=== PATIENT | female | born 1960 | race Caucasian/White ===

== ENCOUNTER 2019-03-28 11:57 | Outpatient (CLI) | payer OTHER, SELFPAY ==
--- NOTE | ~2019-03-28 | CT_ITS ---
EXAMINATION: CT abdomen pelvis w con EXAM DATE: 03/28/2019 14:04 INDICATION: Acute left lower quadrant pain. TECHNIQUE: Spiral CT of the abdomen and pelvis was performed following intravenous injection of 100 m L Omnipaque 350. Axial, coronal and sagittal images were reviewed. The dose-length product (DLP) fo r this examination was 410.80 mGy-cm. The exposure was tailored according to patient size (auto mA e xposure control), and iterative reconstruction (ASIR) was used as additional dose reduction technique . There is no prior study for comparison. FINDINGS: The liver, spleen, adrenal glands and pancreas are unremarkable. Gallbladder is unremarkab le. No biliary obstruction. Portal and splenic veins are patent. Kidneys enhance symmetrically. T here is no hydronephrosis. The uterus is not identified and has likely been surgically resected. T he bladder is unremarkable. There is no retroperitoneal or pelvic lymphadenopathy. There is mild s cattered arteriosclerotic disease. The appendix is not positively visualized. There is no pericecal inflammatory change to suggest appendicitis. The stomach and small bowel are unremarkable. There is mild to moderate scattered colonic diverticulosis. There is focal inflammation surrounding c ouple of larger diverticula at the descending/sigmoid colonic junction. Most likely acute uncomplicat ed diverticulitis. Although findings above are most consistent with acute diverticulitis, rarely infl ammatory cancer can have a similar appearance. Therefore recommend treating patient for acute diverti culitis and then obtaining a 2-4 week followup abdomen pelvis CT. Alternatively, if patient has not h ad recent colonoscopy, followup colonoscopy could be considered. No free intraperitoneal gas. The heart is normal in size. There are no pericardial or pleural effusions. The lung bases are unremark able. There are no osteoblastic or osteolytic lesions identified. IMPRESSION: Scattered colonic diverticulosis with moderate inflammation of the descending/sigmoid col onic junction most likely acute uncomplicated diverticulitis. Follow-up recommendation above. Reviewed, dictated and finalized at location A. MAKER IMPRESSION: Scattered colonic diverticulosis with moderate inflammation of the descending/sigmoid colonic junction most likely acute uncomplicated diverticuli tis. Follow-up recommendation above.
[2019-03-28 12:30] LABS: Basophils Absolute Auto 0.06 K/mm3 (0.00-0.10); Basophils Percent Auto 0.5 % (0.0-1.0); Eosinophils Absolute Auto 0.12 K/mm3 (0.02-0.50); Eosinophils Percent Auto 0.9 % (1.0-6.0); Hematocrit 38.8 % (35.0-49.0); Hemoglobin 12.8 g/dL (12.0-15.0); Immature Granulocyte Absolute 0.03 K/mm3 (0.00-0.00); Immature Granulocyte Percent A 0.2 % (0.0-0.0); Lymphocytes Absolute Auto 2.08 K/mm3 (1.10-4.50); Lymphocytes Percent Auto 16.2 % (18.0-42.0); Mean Corpuscular Hemoglobin 31.3 pg (27.0-31.0); Mean Corpuscular Volume 94.9 fL (78.0-102.0); Mean Platelet Volume 9.7 fl (9.2-11.8); Monocytes Absolute Auto 1.16 K/mm3 (0.10-0.90); Neutrophils Absolute Auto 9.4 K/mm3 (1.7-7.2); Neutrophils Percent Auto 73.2 % (50.0-70.0); Platelet Count Result 250 K/mm3 (150-420); Red Blood Count 4.09 M/mm3 (4.20-5.40); Red Cell Distribution Width 12.2 % (11.6-14.4); White Blood Count 12.9 K/mm3 (4.8-10.8)
[2019-03-28 12:42] LABS: Add Urine Microscopic? YES; Appearance Urine Clear (Clear); Bilirubin Urine Negative (Negative); Blood Urine 2+ (Negative); Color Urine Yellow (Yellow); Glucose Urine UA Negative (Negative); Ketones Urine Negative (Negative); Leukocyte Esterase Ur Negative LEU/UL (Negative); Nitrate Urine Negative (Negative); Protein Urine Negative (Negative); Specific Grav Ur 1.015 (1.010-1.020); Urobilinogen Urine 0.2 mg/dL (0.2-1.0)
[2019-03-28 12:45] LABS: Alanine Aminotransferase 16 U/L (14-59); Albumin Level 3.9 g/dL (3.4-5.0); Alkaline Phosphatase 66 U/L (46-116); Anion Gap 13.4 mmol/L (7-16); Aspartate Amino Transferase 14 U/L (15-37); Bilirubin,Total 0.6 mg/dL (0.00-1.00); Blood Urea Nitrogen 10 mg/dL (7-18); Calcium 9.1 mg/dL (8.5-10.1); Carbon Dioxide 28 mmol/L (21-32); Chloride 103 mmol/L (98-108); Estimated Glomerular Filt Rate > 60; Glucose 104 mg/dL (70-99); Osmolality Calculated 289 mOsm/kg (285-295); Potassium 4.4 mmol/L (3.5-5.1); Sodium 140 mmol/L (136-145); Total Protein 8.3 g/dL (6.4-8.2)
[2019-03-28 12:51] LABS: Bacteria Urine Trace /hpf; Squamous Epithelial Cell Urine Few /hpf (Few); WBC Urine 0-3 /hpf (0-3)
== END 2019-03-28 11:58 | disposition home or self-care (01) ==
PROVIDERS: PCP Internal Medicine; Visit Provider Internal Medicine
DX: R10.32 Left lower quadrant pain (principal)
CPT/HCPCS: 36415; 74177; 80053; 81001; 85025; Q9965

== ENCOUNTER 2019-04-11 12:22 | Outpatient (CLI) | payer OTHER, SELFPAY ==
[2019-04-11 12:34] LABS: Basophils Absolute Auto 0.05 K/mm3 (0.00-0.10); Basophils Percent Auto 0.7 % (0.0-1.0); Eosinophils Absolute Auto 0.15 K/mm3 (0.02-0.50); Immature Granulocyte Absolute 0.02 K/mm3 (0.00-0.00); Immature Granulocyte Percent A 0.3 % (0.0-0.0); Lymphocytes Percent Auto 25.4 % (18.0-42.0); Mean Corpuscular HGB Conc 34.1 g/dL (32.0-36.0); Mean Corpuscular Hemoglobin 32.1 pg (27.0-31.0); Mean Platelet Volume 9.5 fl (9.2-11.8); Monocytes Absolute Auto 0.49 K/mm3 (0.10-0.90); Monocytes Percent Auto 6.6 % (2.0-11.0); Neutrophils Absolute Auto 4.9 K/mm3 (1.7-7.2); Platelet Count Result 264 K/mm3 (150-420); Red Blood Count 4.36 M/mm3 (4.20-5.40); Red Cell Distribution Width 12.4 % (11.6-14.4); White Blood Count 7.5 K/mm3 (4.8-10.8)
[2019-04-11 12:36] LABS: Add Urine Microscopic? YES; Appearance Urine Clear (Clear); Bilirubin Urine Negative (Negative); Blood Urine 1+ (Negative); Color Urine Yellow (Yellow); Glucose Urine UA Negative (Negative); Ketones Urine Negative (Negative); Leukocyte Esterase Ur Negative (Negative); Nitrate Urine Negative (Negative); Protein Urine Negative (Negative); Urobilinogen Urine 0.2 mg/dL (0.2-1.0); pH Urine 5.5 (5.0-8.0)
[2019-04-11 12:41] LABS: Bacteria Urine Trace /hpf; Squamous Epithelial Cell Urine Rare /hpf (Few); WBC Urine 0-3 /hpf (0-3)
[2019-04-11 13:42] LABS: Alanine Aminotransferase 36 U/L (14-59); Albumin Level 4.2 g/dL (3.4-5.0); Alkaline Phosphatase 58 U/L (46-116); Anion Gap 15.5 mmol/L (7-16); Aspartate Amino Transferase 28 U/L (15-37); Bilirubin,Total 0.5 mg/dL (0.00-1.00); Blood Urea Nitrogen 16 mg/dL (7-18); Calcium 9.1 mg/dL (8.5-10.1); Carbon Dioxide 26 mmol/L (21-32); Chloride 104 mmol/L (98-108); Estimated Glomerular Filt Rate > 60; Glucose 99 mg/dL (70-99); Osmolality Calculated 293 mOsm/kg (285-295); Potassium 4.5 mmol/L (3.5-5.1); Sodium 141 mmol/L (136-145); Total Protein 7.4 g/dL (6.4-8.2)
== END 2019-04-11 12:23 | disposition home or self-care (01) ==
PROVIDERS: PCP Internal Medicine; Visit Provider Internal Medicine
DX: K57.92 Diverticulitis of intestine, part unspecified, without perforation or abscess without bleeding (principal)
CPT/HCPCS: 36415; 80053; 81001; 85025; 88112; 88175; G0145

== ENCOUNTER 2019-11-14 08:00 | Outpatient (CLI) | payer OTHER, SELFPAY ==
[2019-11-14 08:40] LABS: Basophils Absolute Auto 0.07 K/mm3 (0.00-0.10); Basophils Percent Auto 1.1 % (0.0-1.0); Eosinophils Absolute Auto 0.15 K/mm3 (0.02-0.50); Eosinophils Percent Auto 2.5 % (1.0-6.0); Hematocrit 39.9 % (35.0-49.0); Hemoglobin 13.2 g/dL (12.0-15.0); Immature Granulocyte Absolute 0.01 K/mm3 (0.00-0.00); Immature Granulocyte Percent A 0.2 % (0.0-0.0); Lymphocytes Absolute Auto 1.88 K/mm3 (1.10-4.50); Lymphocytes Percent Auto 30.8 % (18.0-42.0); Mean Corpuscular HGB Conc 33.1 g/dL (32.0-36.0); Mean Corpuscular Hemoglobin 31.8 pg (27.0-31.0); Mean Corpuscular Volume 96.1 fL (78.0-102.0); Mean Platelet Volume 10.2 fl (9.2-11.8); Monocytes Absolute Auto 0.59 K/mm3 (0.10-0.90); Monocytes Percent Auto 9.7 % (2.0-11.0); Neutrophils Absolute Auto 3.4 K/mm3 (1.7-7.2); Neutrophils Percent Auto 55.7 % (50.0-70.0); Platelet Count Result 210 K/mm3 (150-420); Red Blood Count 4.15 M/mm3 (4.20-5.40); Red Cell Distribution Width 11.3 % (11.6-14.4); White Blood Count 6.1 K/mm3 (4.8-10.8)
[2019-11-14 08:58] LABS: Add Urine Microscopic? NO; Appearance Urine Clear (Clear); Bilirubin Urine Negative (Negative); Blood Urine Negative (Negative); Color Urine Yellow (Yellow); Glucose Urine UA Negative (Negative); Ketones Urine Negative (Negative); Leukocyte Esterase Ur Negative (Negative); Nitrate Urine Negative (Negative); Protein Urine Negative (Negative); Urobilinogen Urine 0.2 mg/dL (0.2-1.0)
[2019-11-14 09:35] LABS: Alanine Aminotransferase 25 U/L (14-59); Albumin Level 4.1 g/dL (3.4-5.0); Alkaline Phosphatase 59 U/L (46-116); Anion Gap 8 mmol/L (8-16); Aspartate Amino Transferase 17 U/L (15-37); Bilirubin,Total 0.5 mg/dL (0.00-1.00); Blood Urea Nitrogen 11 mg/dL (7-18); Carbon Dioxide 30 mmol/L (21-32); Chloride 107 mmol/L (98-108); Cholesterol 316 mg/dL (0-200); Estimated Glomerular Filt Rate > 60; Glucose 89 mg/dL (70-99); HDL Direct 60 mg/dL (40-60); LDL Cholesterol Calculated 218 mg/dL (<130); Osmolality Calculated 298 mOsm/kg (285-295); Potassium 4.5 mmol/L (3.5-5.1); Sodium 145 mmol/L (136-145); Triglycerides 189 mg/dL (0-150)
[2019-11-17 21:57] LABS: Vitamin D 25 Hydroxy 26 ng/mL (30-100)
== END 2019-11-14 08:01 | disposition home or self-care (01) ==
LOC: CHSLAB 08:02
PROVIDERS: PCP Internal Medicine; Visit Provider Internal Medicine
DX: E78.2 Mixed hyperlipidemia (principal); M81.0 Age-related osteoporosis without current pathological fracture
CPT/HCPCS: 36415; 80053; 80061; 81003; 82306; 85025

== ENCOUNTER 2019-12-01 09:42 | Outpatient (CLI) | payer OTHER, SELFPAY ==
[2019-12-01 10:55] LABS: Erythrocyte Sedimentation Rate 15 mm/hr (0-20); Rheumatoid Factor Screen Negative (Negative)
[2019-12-01 11:24] LABS: CRP < 0.2 mg/dL (0.0-0.9)
[2019-12-04 11:18] LABS: Anti Cyclic Citrullinated Pept <16 Units (<20)
== END 2019-12-01 09:43 | disposition home or self-care (01) ==
PROVIDERS: PCP Internal Medicine; Visit Provider Internal Medicine
DX: M79.642 Pain in left hand (principal); M79.641 Pain in right hand
CPT/HCPCS: 36415; 85652; 86038; 86140; 86200; 86430

== ENCOUNTER 2020-02-24 08:11 | Outpatient (CLI) | payer OTHER, SELFPAY ==
[2020-02-24 09:15] LABS: Alanine Aminotransferase 24 U/L (14-59); Aspartate Amino Transferase 20 U/L (15-37); Cholesterol 177 mg/dL (0-200); Creatine Kinase 159 U/L (26-192); HDL Direct 63 mg/dL (40-60); LDL Cholesterol Calculated 79 mg/dL (<130); Triglycerides 175 mg/dL (0-150)
== END 2020-02-24 08:12 | disposition home or self-care (01) ==
PROVIDERS: PCP Internal Medicine; Visit Provider Internal Medicine
DX: E78.2 Mixed hyperlipidemia (principal)
CPT/HCPCS: 36415; 80061; 82550; 84450; 84460

== ENCOUNTER → 2020-04-30 00:59 | Outpatient (CLI) | payer OTHER, SELFPAY ==
[2020-04-30 20:24] LABS: SARS-CoV-2 RNA PCR Negative
== END ==
PROVIDERS: PCP Internal Medicine; Visit Provider Surgery
DX: Z01.812 Encounter for preprocedural laboratory examination (principal); Z20.822 Contact with and (suspected) exposure to COVID-19
CPT/HCPCS: C9803; U0003; U0005

== ENCOUNTER 2020-05-03 01:37 | Day surgery (SDC) | payer OTHER, SELFPAY ==
[2020-04-20 11:13] VITALS: BMI 31.2
[2020-05-03] MEDS: LACTATED RINGERS 1,000 ML 150 ML IV CONT (07:29)
[2020-05-03 07:30] VITALS: BP 148/67; PULSE 75; RESP 16; TEMP 36.6; O2SAT 99; BMI 28.9
--- NOTE | 2020-05-03 08:39 | WPDANESEPPF ---
Anes - Initial Pre Proc Eval Procedure: Operation Date: 05/03/20 08:30 Proposed Procedures p Colonoscopy - Tom Dockery DO Date/Time: 05/03/20 08:39 Surgeon: Tom Dockery DO Pre Op Diagnosis: LLQ Pain, Diverticulosis Patient Data Age: 59 Gender: F Height: 5 ft 1 in Weight: 69.5 kg Last Vital Signs Temp 97.9 F 05/03/20 07:30 Pulse 75 05/03/20 07:30 Resp 16 05/03/20 07:30 BP 148/67 H 05/03/20 07:30 Pulse Ox 99 05/03/20 07:30 Allergies Allergy/AdvReac Type Severity Reaction Status Date / Time diazepam AdvReac Mild NAUSEA AND Unverified 04/20/20 11:19 VOMITING meperidine AdvReac Mild NAUSEA AND Unverified 04/20/20 11:19 VOMITING Home Medications Medication Instructions Recorded Confirmed Type aspirin 81 mg PO DAILY 04/20/20 04/20/20 History flsoxmwkqooi-pqd-sxzx-FA-vit K 1 tablet PO DAILY 04/20/20 04/20/20 History [Adults Multivitamin] rosuvastatin 10 mg PO EVERY OTHER DAY 04/20/20 04/20/20 History Patient hx anesthesia problems: none Family hx anesthesia problems: none PMFSH Past Medical History Medical History (Updated 05/03/20 @ 08:34 by J Luis York MD) Hyperlipidemia Social History Social History Smoking status: Never smoker Alcohol intake: current Drinks per week: 2 Substance use: never Substance use type: does not use Living arrangements: with family Spiritual care concerns: No Anes - Eval Final PreProcedure Day of Procedure 05/03/20 08:39 Patient weight: normal Heart: regular rate and rhythm Lungs: clear to auscultation Airway: Mallampati scale class II Neurological: alert and oriented Last oral intake: >/= 8 hours ASA classification: II Emergent: no Anesthetic plan: proceed Anesthesia type and monitoring: general GIVS and standard monitoring Informed Consent: The patient's anesthetic plan and its attendant risks and benefits were discussed with the patient/family/POA. Questions were solicited and answers provided to the satisfaction of the patient/family/POA.
--- NOTE | 2020-05-03 08:44 | PM.IMHP ---
H&P: HPI History of Present Illness Date/Time: 05/03/20 08:44 Chief Complaint: Screening for colorectal cancer Narrative: 59 yo woman presents for colonoscopy. Last done 10 years ago and was normal. Denies hematochezia, melena, or fam hx colon cancer. She did have diverticulitis 1 year ago but has had no problems since. Review of Systems Review of Systems: All systems reviewed & are unremarkable except as noted in HPI and below Constitutional: Constitutional: Denies chills, Denies fever(s), Denies headache(s) and Denies weight loss Eyes: Eyes: Denies change in vision ENT: Denies dizziness, Denies headache(s), Denies neck mass and Denies throat swelling Cardiovascular: Cardiovascular: Denies chest pain, Denies lightheadedness and Denies dyspnea Respiratory: Respiratory: Denies cough, Denies dyspnea and Denies wheezing Gastrointestinal: Gastrointestinal: Denies abdominal pain, Denies change in bowel habits, Denies nausea and Denies vomiting Genitourinary: Genitourinary: Denies hematuria and Denies dysuria Musculoskeletal: Musculoskeletal: Reports as per HPI Integumentary/Breasts: Skin/Breast: Reports as per HPI Neurologic: Denies dizziness and Denies headache(s) Allergic/Immunologic: Allergic/Immunologic: Denies throat swelling and Denies wheezing [facility] Past Medical History Medical History (Updated 05/03/20 @ 08:45 by Tom Dockery DO) Hyperlipidemia Social History Social History Smoking status: Never smoker Alcohol intake: current Drinks per week: 2 Substance use: never Substance use type: does not use Living arrangements: with family Spiritual care concerns: No Meds Home Medications and Allergies Home Medications Medication Instructions Recorded Confirmed Type aspirin 81 mg PO DAILY 04/20/20 04/20/20 History hwnyfmuztqkl-edx-jlfy-FA-vit K 1 tablet PO DAILY 04/20/20 04/20/20 History [Adults Multivitamin] rosuvastatin 10 mg PO EVERY OTHER DAY 04/20/20 04/20/20 History Allergies Allergy/AdvReac Type Severity Reaction Status Date / Time diazepam AdvReac Mild NAUSEA AND Unverified 04/20/20 11:19 VOMITING meperidine AdvReac Mild NAUSEA AND Unverified 04/20/20 11:19 VOMITING Vital Signs Vital Signs - 24 hr 05/03/20 07:30 Temperature 36.6 C Pulse Rate 75 Respiratory Rate 16 Blood Pressure 148/67 H Pulse Oximetry 99 Exam Const: General: no acute distress and alert Orientation/consciousness: patient oriented x3 HENMT: Head: normocephalic and atraumatic Ears: hearing grossly normal bilaterally General nose exam: Normal nares present Mouth: Yes Normal oral and palatal mucosa present Eyes: Periorbital: periorbital findings normal Sclera: sclerae normal EOM: EOMs intact bilaterally Neck: Neck: normal visual inspection, no lymphadenopathy and trachea midline Chest: Chest palpation & inspection: normal inspection of the chest Resp: Effort & Inspection: normal respiratory effort Auscultation: clear to auscultation bilaterally Cardio: Jugular venous distension: no JVD Rate: regular rate Rhythm: regular rhythm Heart sounds: S1 normal heart sound present and S2 normal heart sound present Peripheral pulses: Peripheral pulses 2+ throughout GI: Inspection: normal to inspection GI Palp: Yes Soft to palpation, No Tenderness to palpation present (GI), No Guarding due to palpation present (GI) and No Rebound tenderness present Percussion: Yes normal to percussion Auscultation: normal bowel sounds : General: Yes no CVA tenderness Back/Spine/Pelvis: Back: no CVA tenderness Neuro: General: patient oriented x3, no focal motor deficits and CN's II-XI intact bilaterally Cognition (Neuro): normal cognition Speech: normal speech Motor exam (neuro): 5/5 motor strength present throughout Extrem: General: capillary refill normal and no clubbing, cyanosis or edema Assessment and Plan Assessment and plan (1) Screening for colorectal cancer:
[2020-05-03 09:17] VITALS: BP 112/75; PULSE 80; RESP 17; O2SAT 100
[2020-05-03 09:27] VITALS: BP 133/77; PULSE 78; RESP 22; O2SAT 99
[2020-05-03 09:37] VITALS: BP 130/71; PULSE 62; RESP 14; O2SAT 99
== END 2020-05-03 09:58 | disposition home or self-care (01) ==
PROVIDERS: PCP Internal Medicine; Visit Provider Surgery
PROC: 0DJD8ZZ Inspection of Lower Intestinal Tract, Via Natural or Artificial Opening Endoscopic (ICD-10-PCS; CPT 45378; principal; 2020-05-03 08:30)
DX: Z12.11 Encounter for screening for malignant neoplasm of colon (principal); K57.30 Diverticulosis of large intestine without perforation or abscess without bleeding; K62.1 Rectal polyp; E78.5 Hyperlipidemia, unspecified; Z79.82 Long term (current) use of aspirin
CPT/HCPCS: 45380; 88305; C9803; J2704; J7120; U0003; U0005

== ENCOUNTER 2020-05-28 08:26 | Outpatient (CLI) | payer OTHER, SELFPAY ==
[2020-05-28 08:35] LABS: Basophils Absolute Auto 0.07 K/mm3 (0.00-0.10); Basophils Percent Auto 1.2 % (0.0-1.0); Eosinophils Percent Auto 3.4 % (1.0-6.0); Hematocrit 40.9 % (35.0-49.0); Hemoglobin 13.7 g/dL (12.0-15.0); Immature Granulocyte Absolute 0.01 K/mm3 (0.00-0.00); Immature Granulocyte Percent A 0.2 % (0.0-0.0); Mean Corpuscular HGB Conc 33.5 g/dL (32.0-36.0); Mean Corpuscular Hemoglobin 31.6 pg (27.0-31.0); Mean Corpuscular Volume 94.5 fL (78.0-102.0); Mean Platelet Volume 9.3 fl (9.2-11.8); Monocytes Absolute Auto 0.55 K/mm3 (0.10-0.90); Monocytes Percent Auto 9.3 % (2.0-11.0); Neutrophils Absolute Auto 3.5 K/mm3 (1.7-7.2); Neutrophils Percent Auto 58.9 % (50.0-70.0); Platelet Count Result 235 K/mm3 (150-420); Red Blood Count 4.33 M/mm3 (4.20-5.40); Red Cell Distribution Width 11.6 % (11.6-14.4); White Blood Count 5.9 K/mm3 (4.8-10.8)
[2020-05-28 08:40] LABS: Add Urine Microscopic? YES; Appearance Urine Clear (Clear); Bilirubin Urine Negative (Negative); Blood Urine 1+ (Negative); Color Urine Yellow (Yellow); Glucose Urine UA Negative (Negative); Ketones Urine Negative (Negative); Leukocyte Esterase Ur Trace LEU/UL (Negative); Nitrate Urine Negative (Negative); Protein Urine Negative (Negative); Specific Grav Ur 1.025 (1.010-1.020); Urobilinogen Urine 0.2 mg/dL (0.2-1.0); pH Urine 5.5 (5.0-8.0)
[2020-05-28 08:49] LABS: Bacteria Urine Trace /hpf; Squamous Epithelial Cell Urine Few /hpf (Few); WBC Urine 0-3 /hpf (0-3)
[2020-05-28 10:06] LABS: Alanine Aminotransferase 32 U/L (14-59); Albumin Level 4.2 g/dL (3.4-5.0); Alkaline Phosphatase 62 U/L (46-116); Anion Gap 8 mmol/L (8-16); Aspartate Amino Transferase 19 U/L (15-37); Bilirubin,Total 0.6 mg/dL (0.00-1.00); Blood Urea Nitrogen 16 mg/dL (7-18); Calcium 8.9 mg/dL (8.5-10.1); Carbon Dioxide 28 mmol/L (21-32); Chloride 106 mmol/L (98-108); Cholesterol 249 mg/dL (0-200); Creatine Kinase 65 U/L (26-192); Estimated Glomerular Filt Rate > 60; Glucose 96 mg/dL (70-99); HDL Direct 69 mg/dL (40-60); LDL Cholesterol Calculated 160 mg/dL (<130); Osmolality Calculated 295 mOsm/kg (285-295); Potassium 4.6 mmol/L (3.5-5.1); Sodium 142 mmol/L (136-145); Total Protein 7.2 g/dL (6.4-8.2); Triglycerides 100 mg/dL (0-150)
[2020-05-31 17:29] LABS: Vitamin D 25 Hydroxy 27 ng/mL (30-100)
== END 2020-05-28 08:27 | disposition home or self-care (01) ==
LOC: CHSLAB 08:28
PROVIDERS: PCP Internal Medicine; Visit Provider Internal Medicine
DX: Z00.00 Encounter for general adult medical examination without abnormal findings (principal); E55.9 Vitamin D deficiency, unspecified
CPT/HCPCS: 36415; 80053; 80061; 81001; 82306; 82550; 85025

== ENCOUNTER 2020-10-04 09:23 | Outpatient (CLI) | payer OTHER, SELFPAY ==
[2020-10-04 10:34] LABS: Alanine Aminotransferase 39 U/L (14-59); Aspartate Amino Transferase 22 U/L (15-37); Cholesterol 208 mg/dL (0-200); Creatine Kinase 52 U/L (26-192); HDL Direct 54 mg/dL (40-60); LDL Cholesterol Calculated 135 mg/dL (<130); Triglycerides 96 mg/dL (0-150)
== END 2020-10-04 09:24 | disposition home or self-care (01) ==
LOC: CHSLAB 09:25
PROVIDERS: PCP Internal Medicine; Visit Provider Internal Medicine
DX: E78.2 Mixed hyperlipidemia (principal)
CPT/HCPCS: 36415; 80061; 82550; 84450; 84460

== ENCOUNTER 2021-03-07 00:14 | Day surgery (SDC) | payer OTHER, SELFPAY ==
[2021-02-22 14:26] VITALS: BMI 28.2
[2021-03-07 06:23] VITALS: BP 140/88; PULSE 65; RESP 18; TEMP 36.8; O2SAT 100
[2021-03-07] MEDS: LACTATED RINGERS 1,000 ML 150 ML IV CONT (06:28)
--- NOTE | 2021-03-07 07:25 | P.PNAN_ITS ---
Anes - Initial Pre Proc Eval Procedure: Operation Date: 03/07/21 07:30 Proposed Procedures p Esophagogastroduodenoscopy - Tom Dockery DO Date/Time: 03/07/21 07:25 Surgeon: Tom Dockery DO Pre Op Diagnosis: epigastric pain, dysphagia Patient Data Age: 60 Gender: F Height: 1.57 m Weight: 73 kg Last Vital Signs Temp 98.2 F 03/07/21 06:23 Pulse 65 03/07/21 06:23 Resp 18 03/07/21 06:23 BP 140/88 03/07/21 06:23 Pulse Ox 100 03/07/21 06:23 Allergies Allergy/AdvReac Type Severity Reaction Status Date / Time diazepam AdvReac Mild NAUSEA AND Verified 03/07/21 06:22 VOMITING meperidine AdvReac Mild NAUSEA AND Verified 03/07/21 06:22 VOMITING Home Medications Medication Instructions Recorded Confirmed Type Adults Multivitamin 1 tablet PO DAILY 04/20/20 02/22/21 History rosuvastatin 10 mg PO EVERY OTHER DAY 04/20/20 02/22/21 History lansoprazole [Prevacid] 15 mg PO DAILY 02/22/21 02/22/21 History Patient hx anesthesia problems: none Family hx anesthesia problems: none Results Review: All pre-operative results and documents have been reviewed as part of the pre-operative evaluation. [facility] Past Medical History Medical History (Updated 05/03/20 @ 08:45 by Tom Dockery DO) Hyperlipidemia Social History Social History Smoking status: Never smoker Alcohol intake: never Drinks per week: 2 Substance use: never Substance use type: does not use Living arrangements: with family Spiritual care concerns: No Anes - Eval Final PreProcedure Day of Procedure 03/07/21 07:25 Patient weight: overweight Heart: regular rate and rhythm Lungs: clear to auscultation Airway: Mallampati scale class II Neurological: alert and oriented Last oral intake: >/= 8 hours ASA classification: II Emergent: no Anesthetic plan: proceed Anesthesia type and monitoring: general GIVS and standard monitoring Results Review: All pre-operative results and documents have been reviewed as part of the pre-operative evaluation. Informed Consent: The patient's anesthetic plan and its attendant risks and benefits were discussed with the patient/family/POA. Questions were solicited and answers provided to the satisfaction of the patient/family/POA.
--- NOTE | 2021-03-07 07:36 | PM.IMHP ---
H&P: HPI History of Present Illness Date/Time: 03/07/21 07:36 Chief Complaint: Epigastric pain Narrative: this is a 60-year-old woman who presents for EGD. She has a history epigastric pain and has to take Prevacid. She had an EGD a few years ago which showed some distal esophagitis. She does state that she has changed her diet and is avoiding NSAIDs. This does seem to help with her symptoms somewhat. Review of Systems Review of Systems: All systems reviewed & are unremarkable except as noted in HPI and below Constitutional: Constitutional: Denies chills, Denies fever(s), Denies headache(s) and Denies weight loss Eyes: Eyes: Denies change in vision ENT: Denies dizziness, Denies headache(s), Denies neck mass and Denies throat swelling Cardiovascular: Cardiovascular: Denies chest pain, Denies lightheadedness and Denies dyspnea Respiratory: Respiratory: Denies cough, Denies dyspnea and Denies wheezing Gastrointestinal: Gastrointestinal: Denies abdominal pain, Denies change in bowel habits, Denies nausea and Denies vomiting Genitourinary: Genitourinary: Denies hematuria and Denies dysuria Musculoskeletal: Musculoskeletal: Reports as per HPI Integumentary/Breasts: Skin/Breast: Reports as per HPI Neurologic: Denies dizziness and Denies headache(s) Allergic/Immunologic: Allergic/Immunologic: Denies throat swelling and Denies wheezing [facility] Past Medical History Medical History (Updated 03/07/21 @ 07:37 by Tmo Dockery DO) Hyperlipidemia Social History Social History Smoking status: Never smoker Alcohol intake: never Drinks per week: 2 Substance use: never Substance use type: does not use Living arrangements: with family Spiritual care concerns: No Meds Home Medications and Allergies Home Medications Medication Instructions Recorded Confirmed Type Adults Multivitamin 1 tablet PO DAILY 04/20/20 02/22/21 History rosuvastatin 10 mg PO EVERY OTHER DAY 04/20/20 02/22/21 History lansoprazole [Prevacid] 15 mg PO DAILY 02/22/21 02/22/21 History Allergies Allergy/AdvReac Type Severity Reaction Status Date / Time diazepam AdvReac Mild NAUSEA AND Verified 03/07/21 06:22 VOMITING meperidine AdvReac Mild NAUSEA AND Verified 03/07/21 06:22 VOMITING Vital Signs Vital Signs - 24 hr 03/07/21 06:23 Temperature 36.8 C Pulse Rate 65 Respiratory Rate 18 Blood Pressure 140/88 Pulse Oximetry 100 Exam Const: General: no acute distress and alert Orientation/consciousness: patient oriented x3 HENMT: Head: normocephalic and atraumatic Ears: hearing grossly normal bilaterally General nose exam: Normal nares present Mouth: Yes Normal oral and palatal mucosa present Eyes: Periorbital: periorbital findings normal Sclera: sclerae normal EOM: EOMs intact bilaterally Neck: Neck: normal visual inspection, no lymphadenopathy and trachea midline Chest: Chest palpation & inspection: normal inspection of the chest Resp: Effort & Inspection: normal respiratory effort Auscultation: clear to auscultation bilaterally Cardio: Jugular venous distension: no JVD Rate: regular rate Rhythm: regular rhythm Heart sounds: S1 normal heart sound present and S2 normal heart sound present Peripheral pulses: Peripheral pulses 2+ throughout GI: Inspection: normal to inspection GI Palp: Yes Soft to palpation, No Tenderness to palpation present (GI), No Guarding due to palpation present (GI) and No Rebound tenderness present Percussion: Yes normal to percussion Auscultation: normal bowel sounds : General: Yes no CVA tenderness Back/Spine/Pelvis: Back: no CVA tenderness Neuro: General: patient oriented x3, no focal motor deficits and CN's II-XI intact bilaterally Cognition (Neuro): normal cognition Speech: normal speech Motor exam (neuro): 5/5 motor strength present throughout Extrem: General: capillary refill normal and no clubbing, cyanosis or edema Assessment and Plan Assess
[2021-03-07 07:49] VITALS: BP 94/60; PULSE 67; RESP 15; O2SAT 99
[2021-03-07 07:59] VITALS: BP 113/68; PULSE 72; RESP 19; O2SAT 100
[2021-03-07 08:09] VITALS: BP 112/75; PULSE 69; RESP 18; O2SAT 100
== END 2021-03-07 08:28 | disposition home or self-care (01) ==
PROVIDERS: PCP Internal Medicine; Visit Provider Surgery
PROC: 0DJ08ZZ Inspection of Upper Intestinal Tract, Via Natural or Artificial Opening Endoscopic (ICD-10-PCS; CPT 43235; principal; 2021-03-07 07:30)
DX: K29.50 Unspecified chronic gastritis without bleeding (principal); K29.80 Duodenitis without bleeding; E78.5 Hyperlipidemia, unspecified
CPT/HCPCS: 43239; 87081; 88305; 88342; J2704; J7120

== ENCOUNTER 2021-05-17 15:44 | Outpatient (CLI) | payer OTHER, SELFPAY ==
--- NOTE | ~2021-05-17 | XR_ITS ---
XR wrist RT min 3V DATE: 05/17/2021 15:57 INDICATION: Two-week fracture follow-up TECHNIQUE: 4 views COMPARISON: None FINDINGS: There is spurring at the radial ulnar joint. There is mild osteoarthritis at the first carpometacarpal joint and interphalangeal joint of the firs t digit. No fracture or dislocation, periosteal reaction or bone destruction is detected. If there a recent fractures which reportedly demonstrated fracture, I would be happy to compare those , if available, with the current examination IMPRESSION: No recent fracture is evident Osteoarthritis Reviewed, dictated and finalized at location A.
== END 2021-05-17 15:45 | disposition home or self-care (01) ==
LOC: CHSIMG 15:45
PROVIDERS: PCP Internal Medicine; Visit Provider Internal Medicine
DX: S62.101D Fracture of unspecified carpal bone, right wrist, subsequent encounter for fracture with routine healing (principal)
CPT/HCPCS: 73110

== ENCOUNTER 2021-06-11 10:16 | Outpatient (CLI) | payer OTHER, SELFPAY ==
--- NOTE | ~2021-06-11 | MR_ITS ---
EXAMINATION: MR knee RT wo con DATE: 06/11/2021 11:48 INDICATION: Right knee pain. Fall 6 weeks ago. TECHNIQUE: Magnetic resonance imaging (MRI) of the right knee was performed without intravenous contr ast. Sequences included axial PD-weighted FS FSE, coronal PD-weighted FSE and PD-weighted FS FSE, sag ittal PD-weighted FSE, and sagittal T2-weighted FS FSE. COMPARISON: None. FINDINGS: Medial compartment: Moderate diffuse cartilage thinning. Moderate osteophytosis. Medial meniscal displacement and apical blunting. Lateral compartment: Mild diffuse cartilage thinning. Intact meniscus. Patellofemoral compartment: Cartilage thinning over the medial facet. Minimal osteophytosis. Retinacula and extensor mechanism intact. Ligaments and tendons: Abnormal signal within the ACL fibers which are thinned and difficult to trace. Normal PCL. Thickenin g and abnormal signal in the proximal MCL. LCL is intact. Fluid: Small volume joint fluid. Large Dickson's cyst. Osseous/other: Mild reactive marrow edema in the medial condyle. IMPRESSION: 1. Tricompartmental osteoarthritis, moderate in the medial compartment. 2. 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 3. Large Dickson's cyst. Reviewed, dictated and finalized at location K.
== END 2021-06-11 10:17 | disposition home or self-care (01) ==
LOC: CHSIMG 10:18
PROVIDERS: PCP Internal Medicine; Visit Provider Internal Medicine
DX: M17.11 Unilateral primary osteoarthritis, right knee (principal); S83.411A Sprain of medial collateral ligament of right knee, initial encounter; S83.511A Sprain of anterior cruciate ligament of right knee, initial encounter; M71.21 Synovial cyst of popliteal space [Baker], right knee; M25.561 Pain in right knee
CPT/HCPCS: 73721

== ENCOUNTER 2023-09-01 15:48 | Outpatient (CLI) | payer OTHER, SELFPAY ==
--- NOTE | ~2023-09-01 | CT_ITS ---
CT abdomen pelvis w con Ordering provider: Delores Linda MD History: 62 years Female with . acute LLQ pain, diarrhea . Comparison: March 28, 2019 Technique: CT abdomen and pelvis with IV and without oral contrast. Automated exposure control and it erative reconstruction technique were employed. The dose-length product was 439.12 mGy-cm. 100 mL Omn ipaque 350 was given IV. Findings: VISUALIZED LOWER CHEST: Minimal atelectatic changes in the middle lobe and lingula. UPPER ABDOMINAL ORGANS: Liver: Normal. Gallbladder: Normal. Spleen: Normal. Stomach/duodenum: Normal. Pancreas: Normal. Adrenals: Normal. Kidneys: Normal. PELVIC ORGANS: The bladder is normal. BOWEL AND MESENTERY: Colon: Fat stranding around the junction of the descending colon with the sigmoid colon associated wi th thickening of the wall suggestive of diverticulitis. The appendix is not demonstrated. Small Bowel: Normal. No obstruction. Peritoneum/mesentery: No free air or free fluid. No mesenteric lymphadenopathy. RETROPERITONEUM: Mild atheromatous disease of the abdominal aorta. No retroperitoneal lymphadenopat hy. MUSCULOSKELETAL: Superficial soft tissues: The superficial soft tissues are normal. Bones: Age appropriate degenerative changes of the spine. IMPRESSION: 1. Diverticulitis at the junction of the descending colon and sigmoid colon. No abscess or free air seen. Reviewed, dictated and finalized at location A. IMPRESSION: 1. Diverticulitis at the junction of the descending colon and sigmoid colon. N o abscess or free air seen.
[2023-09-01 16:09] LABS: Estimated Glomerular Filt Rate > 60
== END 2023-09-01 15:49 | disposition home or self-care (01) ==
PROVIDERS: PCP Internal Medicine; Visit Provider Internal Medicine
DX: R10.32 Left lower quadrant pain (principal); R19.7 Diarrhea, unspecified; K57.92 Diverticulitis of intestine, part unspecified, without perforation or abscess without bleeding
CPT/HCPCS: 74177; Q9967

== ENCOUNTER 2024-12-27 13:30 | Outpatient (CLI) | payer MEDICARE, SELFPAY ==
--- NOTE | ~2024-12-27 | CT_ITS ---
EXAMINATION: CT abdomen pelvis w con DATE: 12/27/2024 14:36 INDICATION: Chronic left lower abdominal pain. Previous history of diverticulitis. TECHNIQUE: Computed tomography (CT) of the abdomen and pelvis was performed with 100 cc Omnipaque 350 intravenous contrast. Automated exposure control and iterative reconstruction technique were employed. The dose-length product was 590.74 mGy-cm. COMPARISON: CT abdomen pelvis dated 09/01/2023. FINDINGS: Lung bases do not show acute findings. No focal lesions of the liver and spleen. Gallbladder, pancreas and kidneys do not show acute findings. No evidence of small bowel obstruction. Moderate diffuse fecal impaction of proximal colon. The appendix is not distinctly visible. Multiple diverticula of the ascending colon and sigmoid colon are noted. No CT evidence of acute diverticulitis. No free fluid, free air or pelvic abscess. Fecal impaction of the rectum. IMPRESSION: 1. Diverticulosis of descending colon and sigmoid colon. No CT evidence of acute diverticulitis. No evidence of free air, free fluid or abscess. 2. Fecal impaction of the colon particularly the ascending colon and rectosigmoid. Reviewed, dictated and finalized at location T. R MAINTENANCE TECHNICIAN IMPRESSION: 1. Diverticulosis of descending colon and sigmoid colon. No CT evidence of acut e diverticulitis. No evidence of free air, free fluid or abscess. 2. Fecal impaction of the colon particularly the ascending colon and rectosigmo id.
[2024-12-27 13:55] LABS: Hematocrit 42.2 % (35.0-42.0); Hemoglobin 14.0 g/dL (11.7-13.8); Mean Corpuscular HGB Conc 33.2 g/dL (32-36); Mean Corpuscular Hemoglobin 31.2 pg (27.0-31.0); Mean Corpuscular Volume 94.0 fL (78.0-102.0); Platelet Count Result 313 K/mm3 (150-420); Red Blood Count 4.49 M/mm3 (4.20-5.40); White Blood Count 17.0 K/mm3 (4.8-10.8)
[2024-12-27 14:03] LABS: Add Urine Microscopic? NO; Appearance Urine Clear (Clear); Glucose Urine UA Negative (Negative); Leukocyte Esterase Ur Negative (Negative); Nitrate Urine Negative (Negative); Specific Grav Ur 1.010 (1.010-1.020)
[2024-12-27 14:10] LABS: Alanine Aminotransferase 29 U/L (6-35); Albumin Level 5.3 g/dL (3.5-5.1); Alkaline Phosphatase 59 U/L (38-126); Anion Gap 13 mmol/L (4-12); Aspartate Amino Transferase 30 U/L (14-36); Bilirubin,Total 0.4 mg/dL (0.2-1.3); Blood Urea Nitrogen 20 mg/dL (7-17); CRP < 0.5 mg/dL (<1.0); Calcium 9.9 mg/dL (8.4-10.2); Carbon Dioxide 24 mmol/L (22-30); Chloride 105 mmol/L (98-107); Estimated Glomerular Filt Rate > 60; Glucose 122 mg/dL (65-110); Osmolality Calculated 297 mOsm/kg (285-295); Potassium 4.7 mmol/L (3.4-5.0); Sodium 142 mmol/L (137-145); Total Protein 8.6 g/dL (6.3-8.2)
== END 2024-12-27 13:31 | disposition home or self-care (01) ==
LOC: CHSLAB 13:35
PROVIDERS: PCP Internal Medicine; Visit Provider Internal Medicine
DX: R10.32 Left lower quadrant pain (principal); K57.30 Diverticulosis of large intestine without perforation or abscess without bleeding; K56.41 Fecal impaction
CPT/HCPCS: 36415; 74177; 80053; 81003; 83605; 85027; 85652; 86140; 87086; Q9967

== ENCOUNTER 2025-02-06 10:24 | Outpatient (CLI) | payer MEDICARE, SELFPAY ==
--- NOTE | ~2025-02-06 | XR_ITS ---
Examination: XR chest 2V Clinical History: COUGH Comparison: . Technique: PA and Lateral Findings: Cardiomediastinal silhouette normal size and configuration. Lungs clear. Small calcified granuloma versus bone island right midlung. No acute bony abnormality. IMPRESSION: 1. No acute cardiopulmonary findings. Reviewed, dictated and finalized at location R. CAL GLASS INSPECTOR
--- NOTE | ~2025-02-06 | CT_ITS ---
CT abdomen pelvis w con Clinical History: DIARRHEA, ? DIVERTICULITIS, . Comparison: 12/27/2024 Technique: Axial images lung bases to symphysis pubis 100 mL Omnipaque 350 Coronal, sagittal reformats CT images acquired with automatic exposure control for dose reduction DLP: 366 mGy-cm Findings: Lung bases: Right middle lobe scarring. Visualized heart and pericardium: Unremarkable. Liver: Unremarkable. Gallbladder: Unremarkable. Spleen: Unremarkable. Pancreas: Unremarkable. Adrenal glands: Unremarkable. Kidneys: Right kidney- No hydronephrosis. No renal stones. Left kidney- No hydronephrosis. No renal stones. Distal esophagus/stomach: Gastric antral wall thickening but under distended. Small bowel loops: Normal caliber and wall thickness. Colon: Diverticula. Focal sigmoid wall thickening with surrounding inflammation, no associated free air or abscess. Appendix not seen. Nodes: No enlarged nodes. Peritoneum: No ascites. No free air. Urinary bladder: Unremarkable. Uterus: Removed. Adnexa: No masses. Bones: No acute bony abnormality. Soft tissues: Unremarkable. Aorta: No aneurysm or dissection. IVC: Unremarkable. Main portal vein/SMV/splenic vein: Patent. IMPRESSION: 1. Minimal sigmoid diverticulitis. 2. Gastritis not excluded. Reviewed, dictated and finalized at location R. DATION ENGINEER
--- OUTSIDE RECORDS SUMMARY | 2025-02-06 10:55 | XMS_ITS ---
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 If you have left the hospital and have any questions, please contact your primary care physician. Reason For Referral No Data Found Plan of Treatment No Data Found Encounters Encounter Diagnosis Start Date Code Code Sys tem Hyperlipidemia, unspecified 10/31/2024 SNOMED-CT Personal Care Team Section
--- OUTSIDE RECORDS SUMMARY | 2025-02-06 10:55 | XMS_ITS | Clinical Summary ---
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 Gender Identity Not on file Sexual Orientation Not on file Plan of Treatment Health Maintenance Due Date Last Done Comments Hepatitis C Virus (HCV) Screening 1960 Pap Smear 09/13/1980 Cervical Cancer Screening (CCS) 09/13/1989 HPV/Cotest 09/13/1989 Cologuard 09/13/2004 Colonoscopy 09/13/2004 Colorectal Cancer Screening 09/13/2004 Immunochemical Fecal Occult Blood 09/13/2004 Pneumococcal Immunization (50+ years) (1 of 1 - PCV) 09/13/2009 Zoster Immunization (2 of 2) 03/05/2020 01/09/2020 Influenza Immunization (#1) 2024 SARS-COV-2 Immunization (1 - season) 2024 Respiratory Syncytial Virus (RSV) Immunization (Adult) (1 - 1-dose 75+ series) 09/13/2034 DTaP/Tdap/Td Immunization Discontinued 2015, 09/03/2006, 11/08/1993, Additional history exists TdaP Immunization Completed 01/08/2016, 09/03/2006 Hepatitis B Immunization Aged Out No longer eligible based on patient's age to complete this topic Human Papillomavirus (HPV) Immunization Aged Out No longer eligible based on patient's age to complete this topic Meningococcal Immunization (ACWY) Aged Out No longer eligible based on patient's age to complete this topic Rotavirus Immunization Aged Out No lo nger eligible based on patient's age to complete this topic
--- OUTSIDE RECORDS SUMMARY | 2025-02-06 10:56 | XMS_ITS | Continuity of Care Document ---
Author Organization [facility] ([facility]) Address [address] [place] [address], 2nd [place] [address] Care Team Providers Care Lumber Trimmer Name Role Phone WARREN MCKNIGHT Primary Care Provider [phone] DIAZ HONEYCUTT Statistics Manager Assessment No assessment recorded. Plan of Treatment Reminders Order Date Submit Date Provider Last Modified By Organization Details Last Modified Time Details Appointments Post Op 15.EST 2024 02:15P M Yue Fine Not available Not available Not available [facility] Patient 15.EST 2025 08:45A M Dr. Mumtaz Christensen Not available Not available Not available [facility] Patient 10.EST 2025 11:20A M Dr. Nydia Rodriguez Not available Not available Not available Imaging 5.PRO 2025 10:15A M Radiology Not available Not available Not available Annual Well [facility] Visit 30.EST 2025 10:30A M Dr. Diaz Honeycutt Not available Not available Not available Lab None recorded . Referral None recorded . Procedures None recorded . Surgeries None recorded . Imaging None recorded . Medication Orders hydrocod one 5 mg-aceta minophen 325 mg tablet 2024 025 [facility] - [place], [place] - [id number], [address] [place], [address], 01/27/2025 16:07:52 hydrocod one 5 mg-aceta minophen 325 mg tablet 2024 025 [id number], [address] [place], [place], [phone], 01/27/2025 16:25:54 Patient TargetsNo targets recorded. Patient InstructionsNo instructions recorded. Reason for Referral None Reported. Problems Name Problem SNOMED Code Status Onset Date Resolution Date Notes Provider Name and Address Organization Details Recorded Time Lentigo - freckle 645237012 Active 2023 Not Available [facility] 22:05:41 Seborrheic keratosis 133041554 Active 2023 Not Available [facility] 22:05:41 Multiple benign melanocytic nevi 158648286 Active 2023 Not Available [facility] 22:05:41 Acute dermatitis 25363821 Active 2023 Not Available [facility] 22:05:41 Atrophic vaginitis 23046622 Active 2023 Not Available [facility] 22:06:05 Postmenopausa l osteopenia 904764681 Active 2023 Not Available [facility] 22:06:05 Multiple actinic keratoses 258807266 Active 2024 Not Available [facility] 22:09:22 Triggering of digit 205667986 Active 2024 Not Available [facility] 22:09:40 Fatigue 70827212 Active 2024 Not Available [facility] 22:09:48 Problem Notes None recorded. Procedures Surgical History Date Name Laterality Status Provider Name and Address Organization Details Recorded Time 01/28/20 25 SC Operative Report completed Zac Rivas MD [address] [place] [address], [phone], [facility] 01/29/2025 08:00:13 01/28/20 25 release of trigger finger completed Lis Rodriges [facility] 01/30/2025 15:16:16 10/05/19 25 Date of Last Mammogram completed Heather Mazariegos [facility] 10/04/2024 10:59:19 11/27/19 Most Recent Bone Density completed Heather Mazariegos [facility] 09/29/2023 11:25:21 Appendectomy completed Not Available Health Note 08/18/2023 11:41:15 Colonoscopy with biopsy completed Not Available Health Note 08/18/2023 11:41:15 Total hysterectomy completed Not Available Health Note 08/18/2023 11:41:15 Imaging Results None recorded. Procedure Notes None recorded. Medical Equipment None Reported. Allergies Allergen ID Allergen Name Allergen Category Reaction Reaction Severity Criticality Documentation Date Start Date Code Code System Note Provider Name and Address Organization Details Recorded Time 16090403 rosuvasta tin medicatio n myalgias (muscle pain) Not available Not available 10/05/2024 56544 2 RxNorm Dora Michelle [facility] 5 09:27:43 829620 Demerol medicatio n Not available Not available Not available 03/09/20232006 96415 1 RxNorm Sheila Zapata [facility] 4 09:50:49 Medications Name Sig Start Date Stop Date Status Note LastModified by Organization Details LastModified Time hydrocodone 5 mg-acetamin ophen 325 mg tablet TAKE 1 TO 2 TABLETS BY MOUTH EVERY 6 HOURS NEEDED FOR PAIN active Not Available Not Available No t Available meloxicam 15 mg tablet TAKE 1 TABLET BY MOUTH EVERY DAY WITH FOOD active Not Available Not Available No t Available prednisone 5 mg tablet TAKE 1 TABLET DAILY BEGINNING THE DAY OF YOUR PROCEDURE . 08/24 completed Not Available Not Available Not Available metronidazo le 500 mg tablet 09/28 completed Not Available Not Available Not Available tretinoin 0.05 % topical cream Apply to AFFECTED AREA (S) topically two to three nights per week. Increase to every night as tolerated active Not Available Not Available No t Available ciprofloxac in 500 mg tablet active Not Available Not Available Not Available triamcinolo ne acetonide 0.1 % topical cream Apply a thin layer to AFFECTED AREA (S) on chest topically NIGHTLY AT BEDTIME NEEDED active Not Available Not Available No t Available amoxicillin 875 mg tablet TAKE 1 TABLET BY MOUTH TWICE DAILY 08/24 completed Not Available Not Available Not Available estradiol 0.01% (0.1 mg/gram) vaginal cream apply pea sized amount to vaginal opening twice weekly 01/27 completed Not Available Not Available Not Available methylpredn isolone 4 mg tablets in a dose pack TAKE TABLETS DIRECTED ON INSIDE OF THIS PACKAGE 01/27 completed Not Available Not Available Not Available ciprofloxac in 0.3 %-dexametha sone 0.1 % ear drops,suspe nsion SHAKE LIQUID AND INSTILL 4 DROPS TO AFFECTED EAR EVERY 12 HOURS FOR 10 DAYS 08/24 completed Not Available Not Available Not Available aspirin 01/27 completed Not Available Not Available Not Available Pepcid active Not Available Not Availa ble Not Available Fish Oil active Not Available Not Avai lable Not Available Vitals None Recorded Social History Question Answer Notes LastModified by Organizat ion Details LastModified Time Tobacco Smoking Status Never Smoker Gene Saha [facility] 10/31/2024 14:49:24 Do You Have An Advance Directive? No [email or web address] Information not available 08/18/2023 What Is Your Level Of Caffeine Consumption? Moderate [email or web address] Information not available 08/18/2023 How Many Times Per Week Do You Exercise? 3-4 Times Per Week [email or web address] Information not available 08/18/2023 Do You Have A Medical Power Of Pitching Coach? No [email or web address] Information not available 08/18/2023 What Was The Date Of Your Most Recent Tobacco Screening? 08/25/2023 [email or web address] Information not available 08/18/2023 What Is Your Relationship Status? Single [email or web address] Information not available 08/18/2023 Sex: Unknown Functional Status Question Answer Note LastModified by Organizat ion Details LastModified Time How many times per week do you consume alcohol? 1-2 times per week [email or web address] Information not available 08/18/2023 Do you use any illicit or recreational drugs? No [email or web address] Information not available 08/18/2023 What is your level of alcohol consumption? Occasional [email or web address] Information not available 08/18/2023 Are you currently employed? 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 Moderate [email or web address] Information not available 08/18/2023 Mental Status None recorded. Family History Relationship Description Onset Age of this Age Resolved Age Notes LastModified by Organization Details LastModified Time Mother Alzheimer's disease [email or web address] Not available 2023 11:41:14 Mother Hypercholest erolemia [email or web address] Not available 2023 11:41:14 Mother Osteoporosis [email or web address] Not availa ble 08/18/2023 11:41:14 Sister Family history of malignant neoplasm [email or web address] Not available 2023 11:41:14 Paternal Grandfather Chronic obstructive pulmonary disease [email or web address] Not available 2023 11:41:14 Maternal Grandmother Diabetes mellitus [email or web address] Not available 2023 11:41:14 Maternal Grandmother Heart disease [email or web address] Not available 2023 11:41:14 Maternal Grandfather Hypertensive disorder [email or web address] Not available 2023 11:41:14 Maternal Grandfather Cerebrovascu lar accident [email or web address] Not available 10/2023 11:41:14 Medical History Condition Response Diabetes N Anxiety Disorder N Bleeding Disorder N Attention-deficit Hyperactivity Disorder N High Blood Pressure N Arthritis N Hyperlipidemia Y Cancer N Stroke N Thyroid Problems N Asthma N Depression N COPD N Anemia N Seizures N Heart Disease N Fibromyalgia N Osteoporosis N Kidney Disease N Gynecological History Statement/Question Response Date of Last Mammogram 10/04/2024 Most Recent Bone Density 11/26/2022 Sexually Active? N Menses Monthly N Current Control Method Hysterectom y Colonoscopy Obstetrics History GPAL:G 0 P 0 0 0 0 Immunizations Vaccine Type Date Status Note Provider Nam e and Address Organization Details Recorded Time Td (adult), 2 Lf tetanus toxoid, preservative free, adsorbed 4 completed Not Available [facility] 01/11/2025 11:47:24 Td (adult), 2 Lf tetanus toxoid, preservative free, adsorbed 4 completed Not Available [facility] 01/11/2025 11:47:24 Tdap 7 completed Not Available [facility] 01/11/2025 11:47:24 Tdap 6 completed Not Available [facility] 01/11/2025 11:47:24 zoster recombinant 0 completed Not Available [facility] 01/11/2025 11:47:24 COVID-19, mRNA, LNP-S, PF, 30 mcg/0.3 mL dose 1 completed Not Available [facility] 01/11/2025 11:47:24 COVID-19, mRNA, LNP-S, PF, 30 mcg/0.3 mL dose 1 completed Not Available [facility] 01/11/2025 11:47:24 zoster recombinant 1 completed Not Available [facility] 01/11/2025 11:47:24 Tdap 1 completed Not Available [facility] 01/11/2025 11:47:24 Influenza, high-dose, trivalent, PF 3 completed Not Available [facility] 01/11/2025 11:47:24 Past Encounters Encounter ID Performer Location Encounter Start Date Encounter Closed Date Diagnosis/Indication Diagnosis SNOMED-CT Code Diagnosis ICD10 Code Diagnosis IMO Codes Diagnosis Note [id number] Zac Rivas MD [address] [facility] [facility] ([place]) [address] [place] [phone] 01/11/2025 11:46:29 01/12/2025 17:34:28 Triggering of digit 992934420 M65.612 [id number] Zac Rivas MD [facility] ([place]) [address] [place] [phone] 01/27/2025 14:03:17 01/30/2025 08:00:24 Triggering of digit 386837457 M65.401 [id number] Riley Church MD [facility] ([place]) [address] [place] [phone] 01/27/2025 14:03:16 01/27/2025 15:15:22 Health Concerns Section Related Observation LastModified by Organization Detai ls LastModified Time None Recorded Concern Status LastModified by Organization Details LastModified Time None Recorded Payers Encounter Date Sequence Insurance Name Policy Number Policy La Covered Member ID La Member ID Guarantor Name 01/27/2025 1 [place] Gracie Huertas [id number] Gracie Huertas 01/27/2025 2 [place] [id number] Gracie Huertas [id number] Gracie Huertas Notes Date Note Type Note Provider Name and Address Organization Details Recorded Time 025 text/ht ml ROS as noted in the HPI Follow up~ Right middle trigger fingerPatient's Care TeamPrimary Care Provider: WARREN MCKNIGHT MD: [address] [place] [address], , NPI: [id number]/INVESTIGATOR INTERNAL REVENUE: DIAZ HONEYCUTT MD: [address] [place] [address], , NPI: [id number] [place] [place] - [phone] ([place]): [address] [place] [address], , [id number] ([place]): [address] [place] [address], , [facility] ([place]): [address] [place] [address], , VitalsNone recorded.AllergiesAllergies not reviewed (last reviewed 10/31/2024)ROSUVASTATIN: Myalgias (muscle pain)MedicationsReviewed Rgpvxtjficiexzbhmg50/26/25 entered Heather Londonoiprofloxacin 500 mg fbuaki09/19/25 filled surescriptsestradioL 0.01% (0.1 mg/gram) vaginal creamapply pea sized amount to vaginal opening twice xzywzk01/26/25 prescribed Diza Honeycutt MDFish OiL10/04/24 entered Heather AndrewsethylPREDNISolone 4 mg tablets in a dose packTAKE TABLETS DIRECTED ON INSIDE OF THIS SRBLUPJ51/13/25 filled biglfmnnrqoGxeyak89/26/25 entered Heather Burlesonstretinoin 0.05 % topical creamApply to AFFECTED AREA (S) topically two to three nights per week. Increase to every night as dmnkymzzb02/06/25 filled surescriptstriamcinolone acetonide 0.1 % topical creamApply a thin layer to AFFECTED AREA (S) on chest topically NIGHTLY AT BEDTIME MERKCH41/11/25 filled surescriptsVaccinesVaccines not reviewed (last reviewed 10/04/2024)Vaccine Type Date Amt. Route Site [facility] Lot # Mfr. Exp.Date VIS [facility] [id number], mRNA, LNP-S, PF, 30 mcg/0.3 mL dose ([employer]) 04/06/20 Pfizer, IncCOVID-19, mRNA, LNP-S, PF, 30 mcg/0.3 mL dose ([employer]) 03/14/20 Intramuscular Deltoid, Left [id number] Pfizer, IncDiphtheria, TetanusTd (adult), adsorbed 11/08/93 [id number] Akorn, IncTd (adult), adsorbed 11/09/63 Akorn, IncDiphtheria, Tetanus, PertussisTdap 09/26/20 Intramuscular Deltoid, Left 59TH3 GlaxoSmithKlineTdap 01/08/16 Intramuscular Deltoid, Right [id number] Sanofi PasteurTdap 09/03/06 Z1153BA Sanofi PasteurInfluenzainfluenza, high dose seasonal 03/03/22 Sanofi PasteurZosterzoster recombinant 06/04/20 Intramuscular Buttock, Right F29KK GlaxoSmithKlinezoster recombinant 01/09/20 Intramuscular Deltoid, Left B93K4 GlaxoSmithKlineProblemsReviewed ProblemsLentigo - freckle - Onset: 08/25/2023Seborrheic keratosis - Onset: 08/25/2023Multiple benign melanocytic nevi - Onset: 08/25/2023cute dermatitis - Onset: 08/25/2023trophic vaginitis - Onset: 09/29/2023ostmenopausal osteopenia - Onset: 09/29/2023Multiple actinic keratoses - Onset: 2024Triggering of digit - Onset: 10/17/2024Fatigue - Onset: 10/28/2024Family HistoryFamily History not reviewed (last reviewed 08/25/2023)Mother - Alzheimer's disease- Hypercholesterolemia- OsteoporosisSister - Family history of malignant neoplasmPaternal Grandfather - Chronic obstructive pulmonary diseaseMaternal Grandmother - Diabetes mellitus- Heart diseaseMaternal Grandfather - Hypertensive disorder- Cerebrovascular accidentSocial HistorySocial History not reviewed (last reviewed 10/31/2024)Substance UseWhat was the date of your most recent tobacco screening?: 4Do you or have you ever smoked tobacco?: Never smokerWhat is your level of alcohol consumption?: OccasionalHow many times per week do you consume alcohol?: 1-2 times per weekDo you use any illicit or recreational drugs?: NoEducation and OccupationAre you currently employed?: NoWhat is your occupation?: Retired [employer] DirectiveDo you have an advance directive?: NoDo you have a medical power of deputy county attorney?: NoAlcohol Use (History)-occ, Type: Chronic Last Edited: 21 Nov 2011 8:50AM Last Reviewed Date: 20111121 CAGE Screening Test For Alcohol Dependence ___(0-4), Type: Chronic Last Edited: 23 Dec 2012 4:14PM Last Reviewed Date: 20121223 Current Every Day Smoker: Denied, Last Edited: 27 May 2011 3:39AM Last Reviewed Date: 20110527 SnomedCode: [id number] Drug Use: Denied, Type: Chronic Last Edited: 18 Feb 2010 1:15PM Last Reviewed Date: 20100218 Marital History - Single, Type: Chronic Last Edited: 18 Apr 2010 11:41AM Last Reviewed Date: 20100418 Never a smoker, Type: Chronic Last Edited: 06 Jul 2013 12:26AM Last Reviewed Date: 20130706 SnomedCode: [id number] 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 I AB. S ECTOPICS MULTIPLE [id number] Medical HistoryPast Medical History not reviewed (last reviewed 08/25/2023)Hyperlipidemia: Millie is seen today concerning painful triggering with range of motion of her right middle finger. Her symptoms have been present for over a year. She did have a corticosteroid injection for this condition in January 2024 and this did not resolve the symptoms. She has had no injury or trauma to her right hand. She has no complaints of numbness tingling in her right hand.Physical ExamOn examination she is pleasant during the office visit and is alert, oriented and answers question properly. No significant skin abnormalities are noted in her right upper extremity. She has good range of motion of her right wrist and hand. Triggering occurs with range of motion of her right middle finger. She is tender over the A1 trip area of her right middle finger. The tip of her right middle finger is pink and warm with good capillary refill and sensation is intact to light touch. Her examination is otherwise unremarkable.Assessment / PlanThe patient has a chronic right middle trigger finger. Diagnosis and treatment options were discussed with her. Her symptoms did not resolve with previous corticosteroid injection. She is morris be scheduled for right middle trigger release under local anesthesia. The surgical procedure was discussed with her in detail including risks, benefits and possible complications. Possible complications discussed included infection and the possibility of persistent or recurrent symptoms in her hand following the surgical procedure. All of her questions were answered and she is agreeable to proceed with right middle trigger finger release. Zac Rivas MD [address] [facility], [place], [address], [facility] 01/29/2025 08:00:19 025 text/ht ml [facility] PRE-ANESTHETIC EVALUATIONReported by PatientReason for VisitFor reason for visit, patient reportsproposed procedure: right middle trigger finger release,surgeon: kulwinder, andpreop diagnosis: trigger finger, right middle finger.Assessment and PlanFor plan, patient reportslocal with monitoring, no anesthesia involvement. Gigi Church MD [address] [facility], [place], [address], [facility] 01/27/2025 15:15:20 OBGyn Episode No OBEpisode recorded.
--- OUTSIDE RECORDS SUMMARY | 2025-02-06 10:56 | XMS_ITS | Continuity of Care Document ---
Author Organization [facility], [address] [facility] ([place]) Address [address] [address] Care Team Providers Care Clay Carman Name Role Phone MCKNIGHTMURRAYALIS Primary Care Provider [phone] DIAZ HONEYCUTT Interactive Digital Media Specialist Assessment Encounter Date Assessment Date Assessment LastModified by Organization Details LastModified Time 01/11/2025 01/11/2025 The patient has a chronic right middle trigger [...] proceed with right middle trigger finger release. mgreatting Not available 01/13/2025 06:21:48 Plan of Treatment Reminders Order Date Submit Date Provider Last Modified By Organization Details Last Modified Time Details Appointments Post Op 15.EST 2024 02:15P M Yue Fine Not available Not available Not available [facility] Patient 15.EST 2025 08:45A M Dr. Mumtaz Christensen Not available Not available Not available [facility] Patient 10.EST 2025 11:20A M Dr. Nydia [...] . Imaging None recorded . Medication Orders None recorded . Patient TargetsNo targets recorded. Patient InstructionsNo instructions recorded. Reason for Referral None Reported. Results Created Date Observation Date Name Description Value Unit Range Abnormal Flag Note LastModifiedBy Organization Detail LastModifiedTime 12/17/1912/16/[address] [address] Teleph one [phone] Name: BINTA HUERTAS [id number] am Date: 2024 Age: 64Phys ician: MD YINKA, DIAZ : 1960Ex aminat ion: BONE DENSIT Y EXAMIN ATION: BONE DENSIT Y PATIEN T PROVID ED HISTOR Y: Postme nopaus al for screen ing. Previo us non-tr aumati c fractu re. COMPAR GISELLE: None FINDIN GS: AP lumbar spine T-scor e is -1.1 Left Hip Total Hip T-scor e is -1.0 Femora l Neck T-scor e is -1.6 Fractu re risk assess ment (FRAX) : 10 year risk for a major osteop orotic fractu re is 15% 10 year risk for a hip fractu re is 1.7% The FRAX tool has not been valida afvio in patien ts curren tly or previo usly treate d with pharma cother apy for osteop orosis . In such patien ts, clinic al judgem ent must be exerci sed in interp reting FRAX scores as the fractu re risk may be overes timate d. IMPRES RAJANI: Bone minera l densit y is in the low bone mass range. Please see PACS for full comput er genera favio report . Additi onal Clinic al Inform ation: Bone minera l densit y: Normal (T-sco re above or = -1.0) Low bone mass (T-sco re betwee n -1.0 and -2.5) Osteop orosis (T-sco re = or below -2.5) Medica l evalua tion for second alin causes of low bone minera l densit y may be approp riate. FRAX is a World Health Organi zation valida favio fractu re risk assess ment tool that calcul ates a person 's 10 year probab ility of a major osteop orosis relate d fractu re and hip fractu re. Accord ing to the Nation al Osteop orosis Founda tion guidel dino, postme nopmauricio al women and men age 50 or older with low bone mass and a 10 year probab ility of a major osteop orosis relate d fractu re = or greate r than 20% or a 10 year probab ility of a hip fractu re = or greate r than 3% should be consid ered for treatm ent. For furthe r inform ation, includ ing treatm ent recomm endati ons, please refer to the 2019 ISCD Offici al Positi ons (http: //www. iscd.o rg) and the [facility] Clinic sharath's Guide to Preven tion and Treatm ent of Osteop orosis (http: //www. nof.or g/prof ession als/cl inical -guide lines) Electr onical ly signed in Cali cribe by: Ching Quiroga res, MD on:12/16/2024 10:59 AM cc: Page PAGE 1 of NUMCAMERONG ES 1 [email or web address] Sc Only - Sc Radiology [address] [place] [address], [address], 12/20/2024 16:01:20 Result Notes None recorded. Problems Name Problem SNOMED Code Status Onset Date Resolution Date Notes Provider Name and Address Organization Details Recorded Time Lentigo - freckle 240352344 Active 2023 Not Available [facility] 22:05:41 Seborrheic keratosis 428847911 Active 2023 Not Available [facility] 22:05:41 Multiple benign melanocytic nevi 354842528 Active 2023 Not Available [facility] 22:05:41 Acute dermatitis 12539761 Active 2023 Not Available [facility] 22:05:41 Atrophic vaginitis 65078064 Active 2023 Not Available [facility] 5 22:06:05 Postmenopausa l osteopenia 100130477 Active 2023 Not Available [facility] 5 22:06:05 Multiple actinic keratoses 520659035 Active 2024 Not Available [facility] 5 22:09:22 Triggering of digit 326596945 Active 2024 Not Available [facility] 5 22:09:40 Fatigue 13675094 Active 2024 Not Available [facility] 22:09:48 Problem Notes None recorded. Procedures Surgical History Date Name Laterality Status Provider Name and Address Organization Details Recorded Time 01/28/20 25 SC Operative Report completed Zac Rivas MD [address] [place] [address], [phone], [facility] 01/29/2025 08:00:13 01/28/20 25 release of trigger finger completed Lis Rodriges [facility] 01/30/2025 15:16:16 10/05/19 25 Date of Last Mammogram completed [facility] 10/04/2024 10:59:19 11/27/19 23 Most Recent Bone Density completed [facility] 09/29/2023 11:25:21 Appendectomy completed Not Available Health [...] Name and Address Organization Details Recorded Time [id number] rosuvasta tin medicatio n myalgias (muscle pain) Not available Not available 10/05/2024 62287 2 [facility] 09:27:43 895962 Demerol medicatio n Not available Not available Not available 03/09/20232006 90887 1 RxNorm Sheila Zapata [facility] 09:50:49 Medications Name Sig Start Date Stop [...] Tobacco Smoking Status Never Smoker Gene Saha [facility] 10/31/2024 14:49:24 Do You Have An Advance Directive? No [email or web address] Information not available 08/18/2023 What Is Your Level Of Caffeine Consumption? Moderate [email or web address] Information not available 08/18/2023 How Many Times Per Week Do You Exercise? 3-4 Times Per Week [email or web address] Information not available 08/18/2023 Do You Have A Medical Power Of Cell Attendant Helper? No [email or web address] Information not available 08/18/2023 What [...] preservative free, adsorbed 4 completed Not Available [facility] 01/11/2025 11:47:24 Td (adult), 2 Lf tetanus toxoid, preservative free, adsorbed 4 completed Not Available [facility] 01/11/2025 11:47:24 Tdap 7 completed Not Available [facility] 01/11/2025 11:47:24 Tdap 6 completed Not Available [facility] 01/11/2025 11:47:24 zoster recombinant 0 completed Not Available [facility] 01/11/2025 11:47:24 COVID-19, mRNA, LNP-S, PF, 30 mcg/0.3 mL dose 1 completed Not Available [facility] 01/11/2025 11:47:24 COVID-19, mRNA, LNP-S, PF, 30 mcg/0.3 mL dose 1 completed Not Available [facility] 01/11/2025 11:47:24 zoster recombinant 1 completed Not Available [facility] 01/11/2025 11:47:24 Tdap 1 completed Not Available [facility] 01/11/2025 11:47:24 Influenza, high-dose, trivalent, PF 3 completed Not Available [facility] 01/11/2025 11:47:24 Past Encounters Encounter ID Performer Location Encounter Start Date Encounter Closed Date Diagnosis/Indication Diagnosis SNOMED-CT Code Diagnosis ICD10 Code Diagnosis IMO Codes Diagnosis Note [id number] Zac Rivas MD [address] [facility] ([place]) [address] [place] [phone] 01/11/2025 11:46:29 01/12/2025 17:34:28 Triggering of digit 214687130 M65.097 4883590 Health Concerns Section Related Observation LastModified by Organization Detai ls LastModified Time None Recorded Concern Status LastModified by Organization Details LastModified Time None Recorded Payers Encounter Date Sequence Insurance Name Policy Number Policy La Covered Member ID La Member ID Guarantor Name 01/11/2025 1 [place] Binta Huertas [id number] 1 Binta Vinsonnes 01/11/2025 2 [place] [id number] Binta Tenorio Kiya [id number] Binta Tenorio Huertas Notes Date Note Type Note Provider Name and Address Organization Details Recorded Time 01/11/2025 text/html Binta is seen today concerning painful triggering with [...] complaints of numbness tingling in her right hand. Zac Rivas MD [address] [place] [address], [phone], [facility] 01/14/2025 08:02:43 OBGyn Episode No OBEpisode recorded.
--- OUTSIDE RECORDS SUMMARY | 2025-02-06 10:56 | XMS_ITS | Continuity of Care Document ---
Author Organization [facility], [facility] ([place]) Address [address] [place] [address] Care Team Providers Care Supervisor Ore Dressing Name Role Phone WARREN MCKNIGHT Primary Care Provider DIAZ HONEYCUTT Electrical Troubleshooter Assessment No assessment recorded. Plan of Treatment Reminders Order Date Submit Date Provider Last Modified By Organization Details Last Modified Time Details Appointments Post Op 15.EST 2024 02:15P M Yue Fine Not available Not available Not available Patient 15.EST 2025 08:45A M Dr. Mumtaz Christensen Not available Not available Not available Patient 10.EST 2025 11:20A M Dr. Nydia [...] Organization Details Recorded Time Lentigo - freckle 586269294 Active 2023 Not Available [facility] 5 22:05:41 Seborrheic keratosis 662195207 Active 2023 Not Available [facility] 5 22:05:41 Multiple benign melanocytic nevi 938307057 Active 2023 Not Available [facility] 5 22:05:41 Acute dermatitis 15361065 Active 2023 Not Available [facility] 5 22:05:41 Atrophic vaginitis 34535124 Active 2023 Not Available [facility] 5 22:06:05 Postmenopausa l osteopenia 270123799 Active 2023 Not Available [facility] 5 22:06:05 Multiple actinic keratoses 533133762 Active 2024 Not Available [facility] 5 22:09:22 Triggering of digit 010374324 Active 2024 Not Available [facility] 5 22:09:40 Fatigue 92134891 Active 2024 Not Available [facility] 22:09:48 Problem Notes None recorded. Procedures Surgical History Date Name Laterality Status Provider Name and Address Organization Details Recorded Time 01/28/20 25 OR Operative Report completed Zac Rivas MD [facility], [phone] 01/29/2025 08:00:13 01/28/20 25 release of trigger finger completed Lis Rodriges [facility] 01/30/2025 15:16:16 10/05/19 25 Date of Last Mammogram completed [facility] 10/04/2024 10:59:19 11/27/19 23 Most Recent Bone Density completed [facility] 09/29/2023 11:25:21 Appendectomy completed Not Available [...] (muscle pain) Not available Not available 10/05/2024 79019 2 RxNorm Dora Michelle [facility] 5 09:27:43 220567 Demerol medicatio n Not available Not available Not available 03/09/20232006 22350 1 RxNorm Sheila Zapata [facility] 4 09:50:49 Medications Name Sig Start Date [...] Time Tobacco Smoking Status Never Smoker Gene Maria A [facility] 10/31/2024 14:49:24 Do You Have An Advance Directive? No [email or web address] Information not available 08/18/2023 What Is Your Level Of Caffeine Consumption? Moderate [email or web address] Information not available 08/18/2023 How Many Times Per Week Do You Exercise? 3-4 Times Per Week [email or web address] Information not available 08/18/2023 Do You Have A Medical Power Of Kiln Firer? No [email or web address] Information not available 08/18/2023 What [...] preservative free, adsorbed 4 completed Not Available [facility] 01/11/2025 11:47:24 Td (adult), 2 Lf tetanus toxoid, preservative free, adsorbed 4 completed Not Available [facility] 01/11/2025 11:47:24 Tdap 7 completed Not Available [facility] 01/11/2025 11:47:24 Tdap 6 completed Not Available [facility] 01/11/2025 11:47:24 zoster recombinant 0 completed Not Available [facility] 01/11/2025 11:47:24 COVID-19, mRNA, LNP-S, PF, 30 mcg/0.3 mL dose 1 completed Not Available [facility] 01/11/2025 11:47:24 COVID-19, mRNA, LNP-S, PF, 30 mcg/0.3 mL dose 1 completed Not Available [facility] 01/11/2025 11:47:24 zoster recombinant 1 completed Not Available [facility] 01/11/2025 11:47:24 Tdap 1 completed Not Available [facility] 01/11/2025 11:47:24 Influenza, high-dose, trivalent, PF 3 completed Not Available [facility] 01/11/2025 11:47:24 Past Encounters Encounter ID Performer Location Encounter Start Date Encounter Closed Date Diagnosis/Indication Diagnosis SNOMED-CT Code Diagnosis ICD10 Code Diagnosis IMO Codes Diagnosis Note [id number] Zac Rivas MD [address] [facility] ([place]) [address] [place] [address] 01/11/2025 11:46:29 01/12/2025 17:34:28 Triggering of digit 103691994 M65.200 [id number] Zac Rivas MD [facility] [address] [place] [address], [address] [place] [address] 01/27/2025 14:03:17 01/30/2025 08:00:24 Triggering of digit 087618131 M65.534 [id number] Riley Church MD [facility] ([place]) [address] [place] [phone] 01/27/2025 14:03:16 01/27/2025 15:15:22 Health Concerns Section Related Observation LastModified by Organization Detai ls LastModified Time None Recorded Concern Status LastModified by Organization Details LastModified Time None Recorded Payers Encounter Date Sequence Insurance Name Policy Number Policy La Covered Member ID La Member ID Guarantor Name 01/27/2025 1 [place] Gracie Huertas [id number] 1 Gracie Huertas 01/27/2025 2 [place]) [id number] Gracie Huertas [id number] Gracie Huertas Notes Date Note Type Note Provider Name and Address Organization Details Recorded Time 025 text/ht ml ROS as noted in the HPI Follow up~ Right middle trigger fingerPatient's Care TeamPrimary Care Provider: WARREN MCKNIGHT MD: [address] [place] [address], , NPI: [id number]/SENIOR COBOL DEVELOPER: DIAZ HONEYCUTT MD: [address] [place] [id number], , NPI: [id number]' [facility] [place], [place] - [phone] ([place]): [address] [place] [address], , [id number] ([place]): [address] [place] [address], , [facility] ([place]): [address] [place] [address], , VitalsNone recorded.AllergiesAllergies not reviewed (last reviewed 10/31/2024)ROSUVASTATIN: Myalgias (muscle pain)MedicationsReviewed Oafdrbdifqkvzbezdf63/26/25 entered Mobui Bryiprofloxacin 500 mg vlegca17/19/25 filled surescriptsestradioL 0.01% (0.1 mg/gram) vaginal creamapply pea sized amount to vaginal opening twice yqnudz23/26/25 prescribed Diaz Honeycutt MDFish OiL10/04/24 entered Heatherraymond BurlesonsmethylPREDNISolone 4 mg tablets in a dose packTAKE TABLETS DIRECTED ON INSIDE OF THIS MORIMDN51/13/25 filled tbetrbyfobzSdkblo87/26/25 entered Heather Sarah Bethstretinoin 0.05 % topical creamApply to AFFECTED AREA (S) topically two to three nights per week. Increase to every night as vbobbtugi98/06/25 filled surescriptstriamcinolone acetonide 0.1 % topical creamApply a thin layer to AFFECTED AREA (S) on chest topically NIGHTLY AT BEDTIME UYJGFO88/11/25 filled surescriptsVaccinesVaccines not reviewed (last reviewed 10/04/2024)Vaccine Type Date Amt. Route Site [facility] Lot # Mfr. Exp.Date VIS VISGiven RtbvkkteloDZBTC-37QZOWD-77, mRNA, LNP-S, PF, 30 mcg/0.3 mL dose (Piictu-BioNTBamatea) 04/06/20 Pfizer, IncCOVID-19, mRNA, LNP-S, PF, 30 mcg/0.3 mL dose (Pfizer-BioNTech) 03/14/20 Intramuscular Deltoid, Left [id number] Pfizer, IncDiphtheria, TetanusTd (adult), adsorbed 11/08/93 [id number] Akorn, IncTd (adult), adsorbed 11/09/63 Akorn, IncDiphtheria, Tetanus, PertussisTdap 09/26/20 Intramuscular Deltoid, Left 59TH3 GlaxoSmithKlineTdap 01/08/16 Intramuscular Deltoid, Right [id number] Sanofi PasteurTdap 09/03/06 L4702JN Sanofi PasteurInfluenzainfluenza, high dose seasonal 03/03/22 Sanofi [...] NoDo you have a medical power of attorney lawyer?: NoAlcohol Use (History)-occ, Type: Chronic Last Edited: 21 Nov 2011 8:50AM Last Reviewed Date: 20111121 CAGE Screening Test For Alcohol Dependence ___(0-4), Type: Chronic Last Edited: 23 Dec 2012 4:14PM Last Reviewed Date: 20121223 Current Every Day Smoker: Denied, Last Edited: 27 May 2011 3:39AM Last Reviewed Date: 20110527 SnomedCode: [id number] Drug Use: Denied, Type: Chronic Last Edited: 18 Feb 2010 1:15PM Last Reviewed Date: 20100218 Marital History - Single, Type: Chronic Last Edited: 18 Apr 2010 11:41AM Last Reviewed Date: 20100418 Never a smoker, Type: Chronic Last Edited: 06 Jul 2013 12:26AM Last Reviewed Date: 20130706 SnomedCode: [id number] 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 I AB. S ECTOPICS MULTIPLE UIHCST8Enhs Medical HistoryPast Medical History not reviewed (last [...] finger release. Zac Rivas MD [address] [place] [address], [phone], [facility] 01/29/2025 08:00:19 025 text/ht ml [facility] PRE-ANESTHETIC EVALUATIONReported by PatientReason for VisitFor reason for visit, patient reportsproposed procedure: right middle trigger finger release,surgeon: kulwinder, andpreop diagnosis: trigger finger, right middle finger.Assessment and PlanFor plan, patient reportslocal with monitoring, no anesthesia involvement. Gigi Church MD [address] [place] [address], [phone], [facility] 01/27/2025 15:15:20 OBGyn Episode No OBEpisode recorded.
--- OUTSIDE RECORDS SUMMARY | 2025-02-06 10:56 | XMS_ITS | Clinical Summary ---
Author Organization [facility] [employer] [facility] lin Address [address] [place] [address] Care Team Providers Care Asl Interpreter Name Role Phone PcpAreli Primary Care Provider [phone] Social History Tobacco Use Types Packs/Day Years Used Date Smoking Tobacco: Never Assessed Comments Unknown Sex and Gender Information Value Date Recorded Sex Assigned at Not on file Legal Sex Female 10:26 AM EST Gender Identity Not on file Sexual Orientation Not on file Plan of Treatment Not on file Medical Devices Not on file Care Teams Asl Interpreter Relationship Specialty Start Date End Date Areli Ford PCP - General Family Medicine 04/11/20
--- OUTSIDE RECORDS SUMMARY | 2025-02-06 10:56 | XMS_ITS | Clinical Summary ---
Author Organization [facility] Address [facility] [place] [address] Care Team Providers Care Site Coordinator Name Role Phone Delores Linda MD Primary Care Provider [phone] Allergies No known active allergies Medications rosuvastatin 10 MG tablet Take 10 mg by mouth nightly at bedtime. Active lansoprazole 30 MG disintegrating tablet Take 30 mg by mouth daily. Active HYDROcodone-acetami nophen 5-325 MG tabletIndications:A cute Pain < 3 Day Supply Take 1-2 tablets by mouth every 6 (six) hours as needed. Indications: Acute Pain < 3 Day Supply 12 tablet Active Encounters Date Type Department Care Team Description 01/20/2025 8:59 AM INFECTION PREVENTION SPECIALIST - 01/20/2025 11:59 PM INFECTION PREVENTION SPECIALIST Hospital Encounter [facility] [address] [place] [address] Yeimi Guthrie, DPM Discharge Disposition: Home or Self Care (Routine Discharge) 01/20/2025 Travel 01/03/2025 11:30 AM INFECTION PREVENTION SPECIALIST - 01/03/2025 11:59 PM INFECTION PREVENTION SPECIALIST Hospital Encounter [facility] [address] [place] [address] Delores Linda MD Discharge Disposition: Home or Self Care (Routine Discharge) 01/03/2025 Orders Only [facility] [address] [place] [address] Delores Linda MD 01/03/2025 Travel 11/11/2024 7:44 AM CDT - 11/11/2024 11:59 PM CDT Hospital Encounter [facility] [address] [place] [address] Yeimi Guthrie, DPM Discharge Disposition: Home or Self Care (Routine Discharge) 11/11/2024 Travel from Last 3 Months Immunizations Immunization Administration Dates Next Due Tdap (Boostrix) 09/26/2020 Social History Tobacco Use Types Packs/Day Years Used Date Smoking Tobacco: Never Smokeless Tobacco: Never Alcohol Use Standard Drinks/Week Comments Yes 0 (1 standard drink = 0.6 oz pur e alcohol) occ. Comments No Sex and Gender Information Value Date Recorded Sex Assigned at Female 11/11/2024 7:38 AM CDT Legal Sex Female 7:07 PM CDT Gender Identity Not on file Sexual Orientation Not on file Last Filed Vital Signs Vital Sign Reading Time Taken Comments Blood Pressure 132/89 09/26/2020 5:30 PM CDT Pulse 124 09/26/2020 4:22 PM CDT Temperature 35.8 C (96.4 F) 09/26/2020 4:22 PM CDT Respiratory Rate 20 09/26/2020 4:22 PM CDT Oxygen Saturation 99% 09/26/2020 5:30 PM CDT Inhaled Oxygen Concentration - - Weight 77.1 kg (170 lb) 09/26/2020 4:22 PM CDT Height 157.5 cm (5' 2) 09/26/2020 4:22 PM CDT Body Mass Index 31.09 09/26/2020 4:22 PM CDT Plan of Treatment Health Maintenance Due Date Last Done Comments Colorectal Cancer Screening Colonoscopy (10 Years) 1959 Hepatitis C 09/13/1977 Mammogram Screening 1999 Pneumococcal Vaccine: 50+ Years (1 of 1 - PCV) 09/13/2009 Dexa Scan (General) 09/13/2024 COVID-19 Vaccine (3 - season) 2024 04/06/2020, 03/14/2020 Influenza Adult (#1) 2024 03/03/2022 DTaP, Tdap and Td Vaccines (4 - Td or Tdap) 09/26/2030 09/26/2020, 01/08/2016, 09/03/2006, Additional history exists RSV Immunization or 60+ Years (1 - 1-dose 75+ series) 09/13/2034 Zoster Vaccines Completed 06/04/2020, 01/09/2020 Hepatitis A Vaccines Aged Out No long er eligible based on patient's age to complete this topic Meningococcal B Vaccine Aged Out No l onger eligible based on patient's age to complete this topic Meningococcal Vaccine Aged Out No sameer jessenia eligible based on patient's age to complete this topic RSV Immunizations Under 20 Months Aged Out No longer eligible based on patient's age to complete this topic Procedures Procedure Name Priority Date/Time Associated Diagnosis Comments CT FOOT RT WO CON Routine 01/20/2025 9:3 2 AM INFECTION PREVENTION SPECIALIST Arthritis of right midfoot CT FOOT LT WO CON Routine 01/20/2025 9:3 2 AM INFECTION PREVENTION SPECIALIST Arthritis of left midfoot LACTIC ACID Routine 01/03/2025 11:42 AM INFECTION PREVENTION SPECIALIST Left lower quadrant pain HC CBC AUTO W/AUTO DIFF Routine 01/03/2025 11:42 AM INFECTION PREVENTION SPECIALIST Left lower quadrant pain COMPREHENSIVE METABOLIC PANEL Routine 01/03/2025 11:42 AM INFECTION PREVENTION SPECIALIST Left lower quadrant pain MRI FOOT LT WO CON Routine 11/11/2024 8: 36 AM CDT Arthritis of right midfoot from Last 3 Months Results * CT FOOT RT WO CON (01/20/2025 9:32 AM INFECTION PREVENTION SPECIALIST) Anatomical Region Laterality Modality Foot Computed Tomogra phy 01/30/2025 10:4 6 AM INFECTION PREVENTION SPECIALIST Impressions 01/30/2025 12:31 PM INFECTION PREVENTION SPECIALIST IMPRESSION: No acute findings. Small plantar calcaneal spur. Ordered By: YEIMI GUTHRIE Interpreted By: Serg Salinas MD, 01/30/2025 10:46 AM Narrative 01/30/2025 12:31 PM INFECTION PREVENTION SPECIALIST [address] [place] [address] Examination: CT of the right foot. Exam time: 0920 hours. Clinical history: Pain and burning dorsally for six months. Comparison: None. Technique: Thin section spiral axial scans were acquired through the right foot without contrast. Sagittal and coronal reconstructions were performed from the data set. A dose lowering technique was used for this procedure, which may include, but is not limited to, dose reduction techniques, automated exposure control, the use of iterative reconstruction and ALARA/Image Gently techniques. Findings: No fracture, dislocation or other acute bony abnormality is identified. There is a small plantar calcaneal spur. No other significant bone or joint abnormality is noted. No discrete soft tissue mass or fluid collection is identified. The attenuation of the muscles is homogeneous. Procedure Note Serg Salinas MD - 01/30/[address] [place] [address] Examination: CT of the right foot. Exam time: 0920 hours. Clinical history: Pain and burning dorsally for six months. Comparison: None. Technique: Thin section spiral axial scans were acquired through the rightfoot without contrast. Sagittal and coronal reconstructions were performedfrom the data set. A dose lowering technique was used for this procedure,which may include, but is not limited to, dose reduction techniques,automated exposure control, the use of iterative reconstruction andALARA/Image Gently techniques. Findings: No fracture, dislocation or other acute bony abnormality isidentified. There is a small plantar calcaneal spur. No other significantbone or joint abnormality is noted. No discrete soft tissue mass or fluidcollection is identified. The attenuation of the muscles is homogeneous. IMPRESSION: No acute findings. Small plantar calcaneal spur. Ordered By: YEIMI GUTHRIE Interpreted By: Serg Salinas MD, 01/30/2025 10:46 AM Yeimi Guthrie DPM CT Final Resu lt * CT FOOT LT WO CON (01/20/2025 9:32 AM INFECTION PREVENTION SPECIALIST) Anatomical Region Laterality Modality Foot Computed Tomogra phy 01/30/2025 10:2 7 AM INFECTION PREVENTION SPECIALIST Impressions 01/30/2025 10:30 AM INFECTION PREVENTION SPECIALIST IMPRESSION: 1. No acute findings. 2. Small plantar calcaneal spur. Ordered By: YEIMI GUTHRIE Interpreted By: Serg Salinas MD, 01/30/2025 10:27 AM Narrative 01/30/2025 10:30 AM INFECTION PREVENTION SPECIALIST [address] [place] [address] Examination: CT of the left foot. Exam time: 0925 hours. Clinical history: Dorsal pain and burning. Comparison: MRI of the left foot, 11/11/2024. Technique: Thin section spiral axial scans were acquired through the left foot without contrast. Sagittal and coronal reconstructions were performed from the data set. A dose lowering technique was used for this procedure, which may include, but is not limited to, dose reduction techniques, automated exposure control, the use of iterative reconstruction and ALARA/Image Gently techniques. Findings: No fracture, dislocation or other acute bony abnormality is identified. There is a small plantar calcaneal spur. No other significant bone or joint abnormality is noted. There is no discrete soft tissue mass or fluid collection. The attenuation of the muscles is homogeneous. Procedure Note Serg Salinas MD - 01/30/[address] [place] [address] Examination: CT of the left foot. Exam time: 0925 hours. Clinical history: Dorsal pain and burning. Comparison: MRI of the left foot, 11/11/2024. Technique: Thin section spiral axial scans were acquired through the leftfoot without contrast. Sagittal and coronal reconstructions were performedfrom the data set. A dose lowering technique was used for this procedure,which may include, but is not limited to, dose reduction techniques,automated exposure control, the use of iterative reconstruction andALARA/Image Gently techniques. Findings: No fracture, dislocation or other acute bony abnormality isidentified. There is a small plantar calcaneal spur. No other significantbone or joint abnormality is noted. There is no discrete soft tissue massor fluid collection. The attenuation of the muscles is homogeneous. IMPRESSION: 1. No acute findings. 2. Small plantar calcaneal spur. Ordered By: YEIMI GUTHRIE Interpreted By: Serg Salinas MD, 01/30/2025 10:27 AM Yeimi Guthrie DPM CT Final Resu lt * LACTIC ACID (01/03/2025 11:42 AM INFECTION PREVENTION SPECIALIST) LACTIC ACID VENOUS 1.6 0.4 - 2.0 MMOL/L 01/03/2025 12:10 PM INFECTION PREVENTION SPECIALIST [facility] BLOOD VENOUS BLOOD SPECIMEN / Unknown 01/03/2025 11:42 AM INFECTION PREVENTION SPECIALIST Delores Linda MD LABORATORY Final Result [facility] [place] [address], * (ABNORMAL) COMPREHENSIVE METABOLIC PANEL (01/03/2025 11:42 AM INFECTION PREVENTION SPECIALIST) SODIUM S/P/B 141 136 - 145 MMOL/L 01/03/2025 12:06 PM INFECTION PREVENTION SPECIALIST [facility] POTASSIUM S/P/B 4.7 3.5 - 5.1 MMOL/L 01/03/2025 12:06 PM INFECTION PREVENTION SPECIALIST [facility] CHLORIDE S/P/B 104 98 - 107 MMOL/L 01/03/2025 12:06 PM INFECTION PREVENTION SPECIALIST [facility] CO2 28.7 21.0 - 32.0 MMOL/L 01/03/2025 12:06 PM INFECTION PREVENTION SPECIALIST [facility] GLUCOSE 99 70 - 99 MG/DL 01/03/2025 12:06 PM [facility] Comment: FASTING GLUCOSE 100 TO 125 MG/DL IS CONSISTENT WITH IMPAIRED FASTING GLUCOSE. FASTING GLUCOSE >125 MG/DL IS CONSISTENT WITH DIABETES. RANDOM GLUCOSE >200 MG/DL WITH HYPERGLYCEMIC SYMPTOMS IS CONSISTENT WITH DIABETES. PER ADA GUIDELINES BUN 17 6 - 24 MG/DL 01/03/2025 12:06 PM [facility] CREATININE S/P/B 0.85 0.55 - 1.02 MG/DL 01/03/2025 12:06 PM [facility] CALCIUM S/P/B 9.3 8.4 - 10.5 MG/DL 01/03/2025 12:06 PM [facility] BILIRUBIN TOTAL S/P/B 0.3 0.2 - 1.0 MG/DL 01/03/2025 12:06 PM [facility] Comment: THIS ASSAY IS NOT RECOMMENDED FOR PATIENTS UNDERGOING TREATMENT WITH ELTROMBOPAG DUE TO THE POTENTIAL FOR FALSELY ELEVATED RESULTS. ALKALINE PHOSPHATASE S/P/B 66 50 - 130 U/L 01/03/2025 12:06 PM [facility] AST 16 15 - 37 U/L 01/03/2025 12:06 PM [facility] ALT 21 14 - 59 U/L 01/03/2025 12:06 PM [facility] TOTAL PROTEIN S/P/B 7.0 6.4 - 8.2 G/DL 01/03/2025 12:06 PM [facility] ALBUMIN S/P/B 3.8 3.4 - 5.0 G/DL 01/03/2025 12:06 PM [facility] ANION GAP 8.3 5.0 - 15.0 MMOL/L 01/03/2025 12:06 PM [facility] OSMOLALITY (CALC) 294 MOSM/KG 025 12:06 PM [facility] Comment:REFERENCE RANGE NOT ESTABLISHED GFR ESTIMATE 76(L) >89 ML/MIN/1. 73 M2 01/03/2025 12:06 PM [facility] GFR NOTES GFR REFERENCE S: 01/03/2025 12:06 PM [facility] Comment: THE ESTIMATED GFR IS CALCULATED USING THE 2020 CKD-EPI EQUATION. THE FOLLOWING CATEGORIES FOR GRADING RENAL FUNCTION ARE RECOMMENDED BY THE INTERNATIONAL SOCIETY OF NEPHROLOGY (KDIGO 2012 CLINICAL PRACTICE GUIDELINE). G1,NORMAL OR HIGH: >89 ml/min/1.73 m2 G2,MILDLY DECREASED: 60-89 ml/min/1.73 m2 G3A,MILDLY TO MODERATELY DECREASED: 45-59 ml/min/1.73 m2 G3B,MODERATELY TO SEVERELY DECREASED: 30-44 ml/min/1.73 m2 G4,SEVERELY DECREASED: 15-29 ml/min/1.73 m2 G5,KIDNEY FAILURE: <15 ml/min/1.73 m2 BLOOD VENOUS BLOOD SPECIMEN / Unknown 01/03/2025 11:42 AM INFECTION PREVENTION SPECIALIST us Delores Linda MD LABORATORY Final Result [facility] [address] [place] [address], * (ABNORMAL) CBC W/DIFF (01/03/2025 11:42 AM INFECTION PREVENTION SPECIALIST) WBC 9.21 4.00 - 10.80 x10'3/uL 01/03/2025 11:53 AM INFECTION PREVENTION SPECIALIST [facility] RBC 4.16 4.10 - 5.40 x10'6/uL 01/03/2025 11:53 AM [facility] HGB 13.3 12.0 - 16.0 G/DL 01/03/2025 11:53 AM INFECTION PREVENTION SPECIALIST [facility] HCT 38.4 36.0 - 47.0 % 01/03/2025 11:53 AM INFECTION PREVENTION SPECIALIST [facility] MCV 92.3 78.0 - 100.0 FL 01/03/2025 11:53 AM INFECTION PREVENTION SPECIALIST [facility] MCH 32.0(H) 27.0 - 31.0 PG 01/03/2025 11:53 AM [facility] MCHC 34.6 33.0 - 36.0 G/DL 01/03/2025 11:53 AM [facility] RDW 11.6 11.5 - 14.5 % 01/03/2025 11:53 AM [facility] PLT 236 150 - 350 x10'3/uL 01/03/2025 11:53 AM [facility] MPV 9.6 7.4 - 10.4 FL 01/03/2025 11:53 AM [facility] CBC COMMENT NORMAL REFERENCE RANGE NOT ESTABLISHED FOR THE PROPORTIONAL LEUKOCYTE DIFFERENTIAL. 01/03/2025 11:53 AM [facility] NEUTROPHILS % 66.9 % 01/03/2025 11:53 AM [facility] LYMPHOCYTES % 21.2 % 01/03/2025 11:53 AM INFECTION PREVENTION SPECIALIST [facility] MONOCYTES % 8.9 % 01/03/2025 11:53 AM INFECTION PREVENTION SPECIALIST [facility] EOSINOPHILS % 2.0 % 01/03/2025 11:53 AM [facility] BASOPHILS % 0.7 % 01/03/2025 11:53 AM [facility] IMMATURE GRANS % 0.3 % 01/04/20 11:53 AM [facility] NRBC % 0.0 % 01/03/2025 11:53 AM [facility] ABS. NEUTROPHILS 6.17 1.60 - 8.30 x10'3/uL 01/03/2025 11:53 AM [facility] ABS. LYMPHOCYTES 1.95 0.80 - 4.70 x10'3/uL 01/03/2025 11:53 AM [facility] ABS. MONOCYTES 0.82 0.00 - 1.50 x10'3/uL 01/03/2025 11:53 AM [facility] ABS. EOSINOPHILS 0.18 0.00 - 0.40 x10'3/uL 01/03/2025 11:53 AM [facility] ABS. BASOPHILS 0.06 0.00 - 0.20 x10'3/uL 01/03/2025 11:53 AM [facility] ABS. IMMATURE GRANULOCYTES 0.03 0.00 - 0.03 x10'3/uL 01/03/2025 11:53 AM [facility] ABS. NUCLEATED RBC'S 0.00 0.00 - 0.01 x10'3/uL 01/03/2025 11:53 AM [facility] BLOOD VENOUS BLOOD SPECIMEN / Unknown 01/03/2025 11:42 AM INFECTION PREVENTION SPECIALIST us Delores Linda MD LABORATORY Final Result [facility] [address] [place] [id number], * MRI FOOT LT WO CON (11/11/2024 8:36 AM CDT) Anatomical Region Laterality Modality Foot Magnetic Resonan ce 11/22/2024 7:57 AM CDT Impressions 11/22/2024 8:00 AM CDT IMPRESSION: 1. No acute or suspicious findings. 2. 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 Small first MTP joint effusion. 3. No evidence of tendon injury or tenosynovitis. 4. Distal phalanges are excluded from the [id number], limiting the exam. Referred By: YEIMI GUTHRIE Interpreted By: Vance Silveira MD, 11/22/2024 7:57 AM Narrative 11/22/2024 8:00 AM CDT [address] [place] [address] EXAMINATION: MRI LEFT FOOT WITHOUT CONTRAST EXAM DATE: 11/11/2024 8:06 AM REASON FOR EXAM: Arthritis of right midfoot Midfoot. Arthritis. COMPARISON: None TECHNIQUE: Multiplanar multisequence imaging of the foot without intravenous contrast. FINDINGS: No evidence of intrinsic muscular atrophy. Mild soft tissue swelling. Small first MTP joint effusion. Lisfranc ligament intact. No evidence of tendon injury or tenosynovitis. No suspicious bone lesion or fracture. Distal phalanges are excluded from the [id number], limiting the exam. 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 Midfoot articulations are essentially well aligned, no significant subchondral cyst formation or hypertrophic bone. No marrow signal abnormality. No evidence of abnormal fluid collection or mass. No significant intermetatarsal bursitis. Procedure Note Vance Silveira MD - 11/22/[address] [place] [address] EXAMINATION: MRI LEFT FOOT WITHOUT CONTRAST EXAM DATE: 11/11/2024 8:06 AM REASON FOR EXAM: Arthritis of right midfoot Midfoot. Arthritis. COMPARISON: None TECHNIQUE: Multiplanar multisequence imaging of the foot withoutintravenous contrast. FINDINGS: No evidence of intrinsic muscular atrophy. Mild soft tissue swelling. Small first MTP joint effusion. Lisfranc ligament intact. No evidence of tendon injury or tenosynovitis. No suspicious bone lesion or fracture. Distal phalanges are excluded fromthe [id number], limiting the exam. 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 Midfoot articulations are essentially well aligned, no significantsubchondral cyst formation or hypertrophic bone. No marrow signalabnormality. No evidence of abnormal fluid collection or mass. No significant intermetatarsal bursitis. IMPRESSION: 1. No acute or suspicious findings. 2. 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 3. No evidence of tendon injury or tenosynovitis. 4. Distal phalanges are excluded from the [id number], limiting theexam. Referred By: YEIMI GUTHRIE Interpreted By: Vance Silveira MD, 11/22/2024 7:57 AM Yeimi Guthrie DPM MRI Final Resu lt from Last 3 Months Insurance [facility] MEDICARE Care Teams Site Coordinator Relationship Specialty Start Date End Date Delores Linda MD [address] [place] [address] PCP - General INTERNAL MEDICINE 09/26/20
--- OUTSIDE RECORDS SUMMARY | 2025-02-06 10:56 | XMS_ITS | Data Portability ---
Author Organization [facility], [address] Neurology (OR) Address [address] [place] [address] Care Team Providers Care Orthopedic Shoes Salesperson Name Role Phone WARREN MCKNIGHT Primary Care Provider [phone] DIAZ HONEYCUTT Car Installations Supervisor Assessment Encounter Date Assessment Date Assessment LastModified by Organization Details LastModified Time 10/17/2024 10/17/2024 Chief complaint: Right hand pain History of present illness: Patient is a 64-year-old female presenting to the clinic for pain. Patient reports that she has noticed catching and locking symptoms of her right middle finger for the last year or so. She denies any significant pain. She received a right middle trigger finger injection by Dr. Martins at [facility] in January 2024. This gave her relief of her symptoms for a few months. She reports her trigger finger has returned and seems to be worsening. She denies any injuries to the right hand. Exam: Patient is in no acute distress and is well-dressed and well-nourished. Patient has appropriate mood and affect. Respirations are nonlabored. Sclera are nonicteric. Patient is nontender over the A1 trip of the right middle finger. This visibly triggers in office today. She has good chart changer strength and is able to flex and extend all other fingers without difficulty. Radial pulses 2+. Capillary refill mckoy and occurs within 2 seconds. Assessment: Right middle trigger finger Plan: Treatment options including observation, injections, and surgery were discussed with the patient in office today. Patient would like to see Dr. Rivas to discuss a right middle trigger finger release. Risks and benefits were discussed with the patient and she voiced understanding. She will call our office with any questions or concerns. shadi Not available 10/17/2024 10:51:19 10/31/2024 10/31/2024 Ms. 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 Referred by Warren Mcknight MD. Patient's PCP. 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 She has significant side effects with statins. She has a coronary calcium score of 0. She does not have any symptoms. Cardiovascular studies summary: EKG: date reviewed by me shows: 01/2014 Sinus bradycardia. 57 bpm. Echocardiogram: 09/2002 There is normal appearing left ventricular size and systolic function. Ejection fraction by visual estimated technique is 60%. Normal right ventricular size and systolic function. Morphologically normal appearing mitral, aortic, and tricuspid valves without regurgitation or stenosis. Normal left and right atria. No evidence of pericardial effusion. IVC is small and collapsible consistent with a right atrial pressure of 5-10 mm Hg. Assessment and plan: Hyperlipidemia -LDL 154 08/2024 We discussed about various modalities of lipid-lowering therapy. She wants to try lifestyle again. She wants to continue on fish oil. She will see me in 8 months and discuss again. At this time she can stop her aspirin. Lifestyle modification counselling: [- Advised about weight management with changes in diet and increasing exercise.] Follow up in 6 months or earlier if needed ROS: 12-point ROS has been completed and negative, exception(s) noted in the HPI and in the scanned history/ROS form. Physical Exam: The patient was examined in the clinic. Gen: appears well with no acute distress HEENT: DIGNA, MMM, no thyromegaly, no palor, no JVD Cardiovascular: S1S2, RRR, no murmur, no rubs or gallops were heard, PPP, no pedal edema Resp: non-labored breathing, clear to auscultation bilaterally Abdomen: Bowel sounds normal, non-tender Neuro: A*O*3, no gross motor or sensory dysfunction in any of the four extremities Skin: No rash, no cyanosis, no clubbing. [email or web address] Not available 11/14/2024 00:44:03 01/11/2025 01/11/2025 The patient has a chronic [...] Fine Not available Not available Not available [facility] Patient 15.EST 2025 08:45A M Dr. Mumtaz Christensen Not available Not available Not available [facility] Patient 10.EST 2025 11:20A M Dr. Nydia [...] mg-aceta minophen 325 mg tablet 2024 025 [facility] [place] - [id number], [address] [place], [address], 01/27/2025 16:07:52 hydrocod one 5 mg-aceta minophen 325 mg tablet 2024 025 [id number], [address], [place], [id number], 01/27/2025 16:25:54 Patient TargetsNo targets recorded. Patient InstructionsNo instructions recorded. Reason for Referral None Reported. Results Created Date Observation Date Name Description Value Unit Range Abnormal Flag Note LastModifiedBy Organization Detail LastModifiedTime 10/05/1910/04/2024 MAMMO , cassi hoyt, digit al, bilat eral [address] [address] Teleph one [phone] Name: BINTA HUERTAS [id number] am Date: 2024 Age: 64Phys ician: MD YINKA, DIAZ : 1960Ex aminat ion: MAMM BILATE RAL DIGITA L SCREEN ING EXAM: MAMM BILATE RAL DIGITA L SCREEN ING, MAMM SCREEN ING TOMOSY NTHESI S ACCESS ION: [id number], [id number] EXAM DATE: 025 9:45 AM HISTOR Y: This is a 64-yea r-old female . She presen ts for her screen ing mammog lisandra with no breast compla ints. COMPAR GISELLE: Prior studie s dating back to 09/12/19 21. DENSIT Y: There are scatte red areas of fibrog landul ar densit y. FINDIN GS: 2D digita l compos ite views as well as 3D digita l tomosy nthesi s views were perfor med. There are no suspic ious masses , calcif icatio ns, or other findin gs within either breast . IMPRES RAJANI: There is no mammog raphic eviden ce of malign sotero. The patien t should return in one year for her annual mammog lisandra. She should return sooner if clinic ally amanuel stahl. ASSESS MENT: BI-RAD S 1: Negati ve. RECOMM ENDATI ON: 1. Screen ing Mammog lisandra in 1 year. COMMEN TS: The patien t will be entere d into an automa favio remind er system for a screen ing mammog lisandra in 1 year. The patien t has been or will be contac favio with the result s of this exam. Electr onical ly signed in [place]arely hudson by: MONTSERRAT QUIROGA RES, MD on:09/10 9:55 AM cc: Page PAGE 1 of [facility] ES 1 [email or web address] Sc Only - Sc Radiology [address], [place], [address], 10/04/2024 12:36:20 11/18/19 25 10/31/2024 dixie tatianatl garcia am, routi ne ECG, 12 leads min No observ ation record ed. [email or web address] Sc Only - Sc Cardiology Ekg [address] [address], [place], [address], 11/23/2024 18:03:06 12/17/1912/16/2024 bone densi ty [facility] 1st [address] [address] Teleph one [phone] Name: BINTA HUERTAS [id number] am Date: 2024 [...] The FRAX tool has not been valida favio in patien ts curren tly or previo [...] Osteop orosis Founda tion guidel dino, postme nopaus al women and men age 50 or [...] of Osteop orosis (http: //www. nof.or g/prof jessee als/cl inical -guide lines) Electr onical ly signed in Cali cribe by: Montserrat Quiroga res, MD on:12/16/2024 10:59 AM cc: Page PAGE 1 of [facility] ES 1 [email or web address] Sc Only - Sc Radiology [address] [place] [address], [address], 12/20/2024 16:01:20 Result Notes None recorded. Problems Name Problem SNOMED Code Status Onset Date Resolution Date Notes Provider Name and Address Organization Details Recorded Time Lentigo - jamesckle 075015236 Active 2023 Not Available [facility] 22:05:41 Seborrheic keratosis 204037319 Active 2023 Not Available [facility] 22:05:41 Multiple benign melanocytic nevi 914772857 Active 2023 Not Available [facility] 12/18/202 5 22:05:41 Acute dermatitis 30529088 Active 2023 Not Available [facility] 5 22:05:41 Atrophic vaginitis 06888589 Active 2023 Not Available [facility] 5 22:06:05 Postmenopausa l osteopenia 464616585 Active 2023 Not Available [facility] 5 22:06:05 Multiple actinic keratoses 275174458 Active 2024 Not Available [facility] 5 22:09:22 Triggering of digit 241522433 Active 2024 Not Available [facility] 22:09:40 Fatigue 10731461 Active 2024 Not Available [facility] 22:09:48 Problem Notes None recorded. Procedures Surgical History Date Name Laterality Status Provider Name and Address Organization Details Recorded Time 01/28/20 25 SC Operative Report completed Zac Rivas MD [address] [place] [address], [phone], [facility] 01/29/2025 08:00:13 01/28/20 25 release of trigger finger completed Lis Rodriges [facility] 01/30/2025 15:16:16 10/05/19 25 Date of Last Mammogram completed [facility] 10/04/2024 10:59:19 11/27/19 23 Most Recent Bone Density completed [facility] 09/29/2023 11:25:21 Appendectomy completed Not Available [...] (muscle pain) Not available Not available 10/05/2024 05686 2 RxNorm Dora Michelle [facility] 5 09:27:43 302234 Demerol medicatio n Not available Not available Not available 03/09/20232006 87829 1 RxNorm Sheila Zapata [facility] 4 09:50:49 Medications Name Sig Start Date [...] Available Not Avai lable Not Available Vitals Date Recorded Body height Body mass index (BMI) Body weight Systolic And Diastolic Provider Name and Address Organization Details Last Updated DateTime 10/17/2024 157.48 cm 29.6 kg/m2 53704.96 g 126/82 mm[Hg] Marce Leblanc [facility] 10/17/2024 10:16:07 Date Recorded Body height Heart rate Oxygen saturation Body mass index (BMI) Body weight Systolic And Diastolic Provider Name and Address Organization Details Last Updated DateTime 157.48 cm 84 /min 96 % 30 kg/m2 11876.1 5 g 154/94 mm[Hg] Gene Saha [facility] 14:48:59 Social History Question Answer Notes LastModified by [email or web address] Details LastModified Time Tobacco Smoking Status Never Smoker Gene Saha [facility] 10/31/2024 14:49:24 Do You Have An Advance Directive? No [email or web address] Information not available 08/18/2023 What Is Your Level Of Caffeine Consumption? Moderate [email or web address] Information not available 08/18/2023 How Many Times Per Week Do You Exercise? 3-4 Times Per Week [email or web address] Information not available 08/18/2023 Do You Have A Medical Power Of Director Of Epidemiology? No [email or web address] Information not available 08/18/2023 What Was The Date Of Your Most Recent Tobacco Screening? 08/25/2023 [email or web address] Information not available 08/18/2023 What Is Your Relationship Status? Single [email or web address] Information not available 08/18/2023 Sex: Unknown Functional Status Question Answer Note LastModified by [employer] ion Details LastModified Time How many times [...] preservative free, adsorbed 4 completed Not Available [facility] 01/11/2025 11:47:24 Td (adult), 2 Lf tetanus toxoid, preservative free, adsorbed 4 completed Not Available [facility] 01/11/2025 11:47:24 Tdap 7 completed Not Available [facility] 01/11/2025 11:47:24 Tdap 6 completed Not Available [facility] 01/11/2025 11:47:24 zoster recombinant 0 completed Not Available [facility] 01/11/2025 11:47:24 COVID-19, mRNA, LNP-S, PF, 30 mcg/0.3 mL dose 1 completed Not Available [facility] 01/11/2025 11:47:24 COVID-19, mRNA, LNP-S, PF, 30 mcg/0.3 mL dose 1 completed Not Available [facility] 01/11/2025 11:47:24 zoster recombinant 1 completed Not Available [facility] 01/11/2025 11:47:24 Tdap 1 completed Not Available [facility] 01/11/2025 11:47:24 Influenza, high-dose, trivalent, PF 3 completed Not Available [facility] 01/11/2025 11:47:24 Past Encounters Encounter ID Performer Location Encounter Start Date Encounter Closed Date Diagnosis/Indication Diagnosis SNOMED-CT Code Diagnosis ICD10 Code Diagnosis IMO Codes Diagnosis Note [id number] NYDIA RODRIGUEZ MD [facility] ([place]) [address] [place] [address] 08/25/2023 09:44:34 08/25/2023 10:09:38 Lentigo - freckle 956110573 L81.4 Lentigines (Sun damaged skin)The benign nature of these spots was reviewed with the patient, but that they do indicate a history of sun-damage . We discussed that they should be watched for change, and are related to chronic sun exposure.W e discussed the importance of UV protection and its role in the aid of prevention of sun damage and skin cancers. Advised the patient on daily sunscreen use, use of wide brimmed hats, and other protective measures. Seborrheic keratosis 394 924621 L82.1 Seborrheic keratoses, numerous- Discussed benign etiology. Reassuranc e provided. No treatment required. Multiple b enign melanocytic nevi 976760526 D22.9 Multiple melanocyti c nevi of trunk and extremitie sThe patient was reassured of benign exam today. We discussed the need to call if there are any concerning changes in the color, size, shape, or symptoms of the lesions, or if certain lesions begin to stand out as being different from the rest ( u gly duckling sign ). Acute dermatitis 0376001 6 L30.9 Irritant dermatitis caused by sweating and bra rubbing- prescribed triamcinol one 0.1% cream to use QHS PRN with flares in the summer [id number] Diaz Honeycutt MD [address] [facility] ([place]) [address] [place] [address] 09/29/2023 11:04:11 09/29/2023 12:06:15 Screening mammography 20318114 Z12.31 Mammogram today on 09/29/2023 was negative. Instructed patient to call with any breast lumps or tenderness .Additiona l diagnosis detail: Screening mammogram for breast cancer Atrophic vaginitis 54361 000 N95.2 We discussed management of atrophic vaginal tissue with over-the-c ounter vaginal lubricants , vaginal suppositor ies, and moisturize rs, specifical ly products containing hyaluronic acid. Gynecologi c examination 02587518 Z01.419 Status post RA TLH/BSO in 2013.Addit ional diagnosis detail: Encounter for gynecologi pj examinatio n Family his tory of malignant neoplasm of breast in first degree relative 548274336 Z80.3 Patient's sister was diagnosed with breast cancer in her early 50s at an early stage.[place] tional diagnosis detail: Family history of breast cancer in sister Postmenopa usal osteopenia 911296636 M85.80 Z78.0 Last bone density scan on 11/26/2022 showed T-score of -1.9 at the femoral neck. Plan to follow-up with another bone density scan in November 2024.We discussed osteoporos is prevention through dietary calcium and vitamin D supplement s, weight bearing exercises, and fall prevention measures.A dditional diagnosis detail: Osteopenia after menopause [id number] NYDIA RODRIGUEZ MD [facility] ([place]) [address] [place] [address] 2024 15:02:29 2024 16:35:41 Lentigo - freckle 459551992 L81.4 Lentigines (Sun damaged skin) - The benign nature of these spots was reviewed with the patient, but that they do indicate a history of sun-damage . We discussed that they should be watched for change, and are related to chronic sun exposure.- We discussed the importance of UV protection and its role in the aid of prevention of sun damage and skin cancers. Advised the patient on daily sunscreen use, use of wide brimmed hats, and other protective measures.- Prescribed tretinoin 0.05% cream to use nightly. Advised that they start using the cream three nights per week to minimize redness and irritation . Apply a pea-sized amount to entire face (not a spot treatment) . Advised to be liberal with facial moisturize r. Discussed that this cream can cause sun sensitivit y. May not be covered by insurance, advised patient they can pay out-of-poc ket using a iCred[employer] coupon. I recommende d regular use of tinted sunscreen and continue regular use of sun protective clothing. Seborrheic keratosis 394 646228 L82.1 Seborrheic keratoses, numerous - Discussed benign etiology. Reassuranc e provided. No treatment required. Multiple b enign melanocytic nevi 847606624 D22.9 Multiple melanocyti c nevi of trunk and extremitie s - The patient was reassured of benign exam today. We discussed the need to call if there are any concerning changes in the color, size, shape, or symptoms of the lesions, or if certain lesions begin to stand out as being different from the rest ( u gly duckling sign ). Acute dermatitis 1735258 6 L30.9 History of irritant dermatitis , clear on exam today - She may call for refills of 0.1% triamcinol one cream when needed. The risks of penitentiary use of topical steroids including thinning of the skin, striae formation, and hypopigmen tation were discussed. I stressed that this medication should only be used as directed. Multiple a ctinic keratoses 553562663 L57.0 071425 Actinic Keratoses The patient was educated regarding the nature of actinic keratoses, including their premaligna nt potential, and their associatio n with prior and ongoing ultraviole t exposure. We discussed the risks and benefits of various alternativ es for the treatment of actinic keratoses. We decided to proceed with cryosurgic al treatment today. The risks of cryosurger y were discussed, including pain, redness, swelling, altered pigmentati on, scarring, and incomplete treatment or recurrence of disease. After discussion of the risks, benefits, and alternativ es, verbal informed consent was obtained. Cryosurgic al destructio n was performed using a liquid nitrogen spray unit. A total of 2 lesion(s) was/were treated with 2 freeze-jesica w cycles lasting 5-7 seconds. The location(s ) are noted in the physical exam section. The expected reaction and aftercare were reviewed. [id number] Diaz Honeycutt MD [address] [facility] ([place]) [address] [place] [address] 10/04/2024 10:54:07 10/04/2024 11:46:08 Screening mammography 65148707 Z12.31 [id number] Mammogram today on 10/04/2024 was negative. Instructed patient to call with any breast lumps or tenderness .An order for next year's mammogram was put in.Additio nal diagnosis detail: Screening mammogram for breast cancer Atrophic vaginitis 43316 000 N95.2 We discussed management of atrophic vaginal tissue with over-the-c ounter vaginal lubricants , vaginal suppositor ies, and moisturize rs, specifical ly products containing hyaluronic acid. Gynecologi c examination 89010384 Z01.419 Status post RA TLH/BSO in 2013.Addit ional diagnosis detail: Encounter for gynecologi pj examinatio n Family his tory of malignant neoplasm of breast in first degree relative 627399895 Z80.3 Patient's sister was diagnosed with breast cancer in her early 50s at an early stage.[place] tional diagnosis detail: Family history of breast cancer in sister Postmenopa usal osteopenia 204392384 M85.80 Z78.0 Last bone density scan on 11/26/2022 showed T-score of -1.9 at the femoral neck. Plan to follow-up with another bone density scan in November 2024.She is scheduled for 11/14/2024. We discussed osteoporos is prevention through dietary calcium and vitamin D supplement s, weight bearing exercises, and fall prevention measures.A dditional diagnosis detail: Osteopenia after menopause [id number] YUE FINE PA-C [facility] ([place] [address] [place] [address] 10/17/2024 09:52:04 10/17/2024 10:53:18 Triggering of digit 775111919 M65.662 2923393 [id number] MUMTAZ CHRISTENSEN MD [facility] Specialty Cardiolog y ([place]) [address] [place] [address] 10/31/2024 14:21:50 11/18/2024 17:07:45 [id number] Zac Rivas MD [address] [facility] ([place]) [address] [place] [address] 01/11/2025 11:46:29 01/12/2025 17:34:28 Triggering of digit 337442275 M65.804 [id number] Zac Rivas MD [facility] Orthopedi cs ([place]) [address] [place] [address], [address] [place] [address] 01/27/2025 14:03:17 01/30/2025 08:00:24 Triggering of digit 806902408 M65.041 0719773 [id number] Riley Church MD [facility] [place] Anesthesi a ([place]) [address] [place] [address] 01/27/2025 14:03:16 01/27/2025 15:15:22 Health Concerns Section Related Observation LastModified by Organization Detai ls LastModified Time None Recorded Concern Status LastModified by Organization Details LastModified Time None Recorded Advance Directives Directive N: Payers Insurance Date Sequence Insurance Name Policy Number Policy La Covered Member ID La Member ID Guarantor Name 09/12/2024 1 [employer] (POS II) [id number] Binta L Huertas [id number] Binta L Huertas 12/03/2024 3 [employer] (HMO) Binta L Huertas [id number] Binta L Huertas 2024 2 [facility] Binta L Huertas [id number] Binta L Huertas 01/11/2025 [place] - [facility] (MEDICARE) Binta Huertas [id number] Binta Vinsonnes 2024 1 [facility] [id number] Binta Jona VinsonHuertas [id number] Binta Vinsonnes 02/02/2025 2 [facility] ([place] [id number] Binta Vinsonnes [id number] Binta L Huertas 01/10/2025 1 [place] Binta Huertas [id number] Binta Huertas Notes Date Note Type Note Provider Name and Address Organization Details Recorded Time 025 text/ht ml Binat Huertasis a 64 year oldfemalepresenting for care. YUE FINE PA-C [address] [place] [address], [phone], [facility] 10/18/2024 09:54:25 025 text/ht ml Binta is seen today concerning painful triggering [...] right hand. Zac Rivas MD [address] [place] [address], [phone], [facility] 01/14/2025 08:02:43 025 text/ht ml ROS as noted in the HPI Follow up~ Right middle trigger fingerPatient's Care TeamPrimary Care Provider: WARREN MCKNIGHT MD: [address] [place] [address], , NPI: [id number]/OFFICE SPEC: DIZA HONEYCUTT MD: [address] [place] [address], , NPI: [id number]'s Pharmacies[facility] [place] [place] - [phone] (ERX): [address] [place] [address], , [id number] ([place]): [address] [place] [address], , [facility] (ERX): [address] [place] [address], , VitalsNone recorded.AllergiesAllergies not reviewed (last reviewed 10/31/2024)ROSUVASTATIN: Myalgias (muscle pain)MedicationsReviewed Ycvlftxqwtyoqdyzoa69/26/25 entered Heather Londonoiprofloxacin 500 mg siosxf85/19/25 filled surescriptsestradioL 0.01% (0.1 mg/gram) vaginal creamapply pea sized amount to vaginal opening twice skrigy18/26/25 prescribed Diaz Honeycutt MDFish OiL10/04/24 entered Heather BurlesonsmethylPREDNISolone 4 mg tablets in a dose packTAKE TABLETS DIRECTED ON INSIDE OF THIS WKRNDGV38/13/25 filled gijqhvozhchQinbis66/26/25 entered Heather Burlesonstretinoin 0.05 % topical creamApply to AFFECTED AREA (S) topically two to three nights per week. Increase to every night as hswhlbfyf30/06/25 filled surescriptstriamcinolone acetonide 0.1 % topical creamApply a thin layer to AFFECTED AREA (S) on chest topically NIGHTLY AT BEDTIME MAVDKU09/11/25 filled surescriptsVaccinesVaccines not reviewed (last reviewed 10/04/2024)Vaccine Type Date Amt. Route Site [facility] Lot # Mfr. Exp.Date VIS VISGiven TfymqnumkmBFBSX-09JUJRG-72, mRNA, LNP-S, PF, 30 mcg/0.3 mL dose ([facility]) 04/06/20 Pfizer, IncCOVID-19, mRNA, LNP-S, PF, 30 mcg/0.3 mL dose (Pfizer-BioNT[facility]) 03/14/20 Intramuscular Deltoid, Left [id number] Pfizer, IncDiphtheria, TetanusTd (adult), adsorbed 11/08/93 [id number] Akorn, IncTd (adult), adsorbed 11/09/63 Akorn, IncDiphtheria, Tetanus, PertussisTdap 09/26/20 Intramuscular Deltoid, Left 59TH3 GlaxoSmithKlineTdap 01/08/16 Intramuscular Deltoid, Right [id number] Sanofi PasteurTdap 09/03/06 [id number] Sanofi PasteurInfluenzainfluenza, high dose seasonal 03/03/22 Sanofi [...] NoDo you have a medical power of civil litigation attorney?: NoAlcohol Use (History)-occ, Type: Chronic Last Edited: 21 Nov 2011 8:50AM Last Reviewed Date: 20111121 CAGE Screening Test For Alcohol Dependence ___(0-4), Type: Chronic Last Edited: 23 Dec 2012 4:14PM Last Reviewed Date: 20121223 Current Every Day Smoker: Denied, Last Edited: 27 May 2011 3:39AM Last Reviewed Date: 20110527 SnomedCode: [id number] Drug Use: Denied, Type: Chronic Last Edited: 18 Feb 2010 1:15PM Last Reviewed Date: 20100218 Marital History - Single, Type: Chronic Last Edited: 18 Apr 2010 11:41AM Last Reviewed Date: 20100418 Never a smoker, Type: Chronic Last Edited: 06 Jul 2013 12:26AM Last Reviewed Date: 20130706 SnomedCode: [id number] 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 I AB. S ECTOPICS MULTIPLE [id number] Medical HistoryPast Medical History not reviewed (last [...] finger release. Zac Rivas MD [address] [place] [address], [phone], [facility] 01/29/2025 08:00:19 025 text/ht ml [facility] PRE-ANESTHETIC EVALUATIONReported by PatientReason for VisitFor reason for visit, patient reportsproposed procedure: right middle trigger finger release,surgeon: kulwinder, andpreop diagnosis: trigger finger, right middle finger.Assessment and PlanFor plan, patient reportslocal with monitoring, no anesthesia involvement. Gigi Church MD [address] [place] [address], [phone], [facility] 01/27/2025 15:15:20 OBGyn Episode No OBEpisode recorded.
--- OUTSIDE RECORDS SUMMARY | 2025-02-06 10:56 | XMS_ITS | Encounter Summary ---
Author Organization [facility] Address [address] [place] [address] Care Team Providers Care Crude Tester Name Role Phone Delores Linda MD Primary Care Provider [phone] Encounter Details Date Type Department Care Team (Latest Contact Info) Description 12/15/2017 Abstract [facility] Medical Group Nic Babcock MD Social History Tobacco Use Types Packs/Day Years Used Date Smoking Tobacco: Never Comments Unknown Sex and Gender Information Value Date Recorded Sex Assigned at Female 11/11/2024 7:38 AM CDT Legal Sex Female 7:07 PM CDT Gender Identity Not on file Sexual Orientation Not on file documented as of this encounter Plan of Treatment Not on file documented as of this encounter Visit Diagnoses Not on filedocumented in this encounter Care Teams Crude Tester Relationship Specialty Start Date End Date Delores Linda MD [address] [place] [phone] PCP - General INTERNAL MEDICINE 09/26/20 documented as of this encounter
[2025-02-06 11:09] LABS: Hematocrit 39.5 % (35.0-42.0); Hemoglobin 13.0 g/dL (11.7-13.8); Mean Corpuscular HGB Conc 32.9 g/dL (32-36); Mean Corpuscular Hemoglobin 30.8 pg (27.0-31.0); Mean Corpuscular Volume 93.6 fL (78.0-102.0); Platelet Count Result 256 K/mm3 (150-420); Red Blood Count 4.22 M/mm3 (4.20-5.40); White Blood Count 8.0 K/mm3 (4.8-10.8)
[2025-02-06 11:25] LABS: Alanine Aminotransferase 22 U/L (6-35); Albumin Level 4.8 g/dL (3.5-5.1); Alkaline Phosphatase 59 U/L (38-126); Anion Gap 12 mmol/L (4-12); Aspartate Amino Transferase 29 U/L (14-36); Bilirubin,Total 0.6 mg/dL (0.2-1.3); Blood Urea Nitrogen 7 mg/dL (7-17); CRP < 0.5 mg/dL (<1.0); Calcium 9.1 mg/dL (8.4-10.2); Carbon Dioxide 24 mmol/L (22-30); Chloride 109 mmol/L (98-107); Estimated Glomerular Filt Rate > 60; Glucose 111 mg/dL (65-110); Osmolality Calculated 299 mOsm/kg (285-295); Potassium 3.9 mmol/L (3.4-5.0); Sodium 145 mmol/L (137-145); Total Protein 7.8 g/dL (6.3-8.2)
[2025-02-06 11:57] LABS: Influenza A QL RT-PCR Negative (Negative); Influenza B QL RT-PCR Negative (Negative); SARS-CoV-2 RNA PCR Negative (Negative)
== END 2025-02-06 10:25 | disposition home or self-care (01) ==
PROVIDERS: PCP Internal Medicine; Visit Provider Internal Medicine
DX: R19.7 Diarrhea, unspecified (principal); K57.92 Diverticulitis of intestine, part unspecified, without perforation or abscess without bleeding
CPT/HCPCS: 36415; 71046; 74177; 80053; 83605; 85027; 85652; 86140; 87636; Q9967

== ENCOUNTER 2025-02-07 08:12 | Outpatient (CLI) | payer MEDICARE, SELFPAY ==
--- OUTSIDE RECORDS SUMMARY | 2025-02-07 08:19 | XMS_ITS | Clinical Summary ---
Author Organization [facility] [employer] [facility] Address [address] [place] [address] Care Team Providers Care State Epidemiologist Name Role Phone PcpAreli Primary Care Provider [phone] Social History Tobacco Use Types Packs/Day Years Used Date Smoking Tobacco: Never Assessed Comments Unknown Sex and Gender Information Value Date Recorded Sex Assigned at Not on file Legal Sex Female 10:26 AM EST Gender Identity Not on file Sexual Orientation Not on file Plan of Treatment Not on file Medical Devices Not on file Care Teams State Epidemiologist Relationship Specialty Start Date End Date Areli Ford PCP - General Family Medicine 04/11/20
--- OUTSIDE RECORDS SUMMARY | 2025-02-07 08:19 | XMS_ITS ---
Author Organization Unknown Address [address] [place] [id number] Phone Care Team Providers Care Candle Extrusion Machine Operator Name Role Phone BETANCOURTTONI STEPHENSON Attending Unavailable [...]
--- OUTSIDE RECORDS SUMMARY | 2025-02-07 08:19 | XMS_ITS | Clinical Summary ---
Author Organization [facility] Address [facility] [place] [address] Care Team Providers Care Rental Coordinator Name Role Phone Delores Linda MD Primary Care Provider [phone] Allergies No known active allergies Medications rosuvastatin [...] Department Care Team Description 01/20/2025 8:59 AM DATAPOWER DEVELOPER - 01/20/2025 11:59 PM DATAPOWER DEVELOPER Hospital Encounter [facility] [address] [place] [address] Yeimi Guthrie, DPM Discharge Disposition: Home or Self Care (Routine Discharge) 01/20/2025 Travel 01/03/2025 11:30 AM DATAPOWER DEVELOPER - 01/03/2025 11:59 PM DATAPOWER DEVELOPER Hospital Encounter [facility] [address] [place] [address] Delores Linda MD Discharge Disposition: Home or Self Care (Routine Discharge) 01/03/2025 Orders Only [facility] [address] [place] [address] Delores Linda MD 01/03/2025 Travel 11/11/2024 7:44 AM CDT - 11/11/2024 11:59 PM CDT Hospital Encounter [facility] [address] [place] [address] Yeimi Guthrie, DPM Discharge Disposition: Home or [...] this topic Meningococcal Vaccine Aged Out No saemer jessenia eligible based on patient's age to complete this topic RSV Immunizations Under 20 Months Aged Out No longer eligible based on patient's age to complete this topic Procedures Procedure Name Priority Date/Time Associated Diagnosis Comments CT FOOT RT WO CON Routine 01/20/2025 9:3 2 AM DATAPOWER DEVELOPER Arthritis of right midfoot CT FOOT LT WO CON Routine 01/20/2025 9:3 2 AM DATAPOWER DEVELOPER Arthritis of left midfoot LACTIC ACID Routine 01/03/2025 11:42 AM DATAPOWER DEVELOPER Left lower quadrant pain HC CBC AUTO W/AUTO DIFF Routine 01/03/2025 11:42 AM DATAPOWER DEVELOPER Left lower quadrant pain COMPREHENSIVE METABOLIC PANEL Routine 01/03/2025 11:42 AM DATAPOWER DEVELOPER Left lower quadrant pain MRI FOOT LT WO CON Routine 11/11/2024 8: 36 AM CDT Arthritis of right midfoot from Last 3 Months Results * CT FOOT RT WO CON (01/20/2025 9:32 AM DATAPOWER DEVELOPER) Anatomical Region Laterality Modality Foot Computed Tomogra phy 01/30/2025 10:4 6 AM DATAPOWER DEVELOPER Impressions 01/30/2025 12:31 PM DATAPOWER DEVELOPER IMPRESSION: No acute findings. Small plantar calcaneal spur. Ordered By: YEIMI GUTHRIE Interpreted By: Serg Salinas MD, 01/30/2025 10:46 AM Narrative 01/30/2025 12:31 PM DATAPOWER DEVELOPER [address] [place] [address] Examination: CT of the right foot. Exam [...] Procedure Note Serg Salinas MD - 01/30/[address] [place] [address] Examination: CT of the right foot. Exam [...] FOOT LT WO CON (01/20/2025 9:32 AM DATAPOWER DEVELOPER) Anatomical Region Laterality Modality Foot Computed Tomogra phy 01/30/2025 10:2 7 AM DATAPOWER DEVELOPER Impressions 01/30/2025 10:30 AM DATAPOWER DEVELOPER IMPRESSION: 1. No acute findings. 2. Small plantar calcaneal spur. Ordered By: YEIMI GUTHRIE Interpreted By: Serg Salinas MD, 01/30/2025 10:27 AM Narrative 01/30/2025 10:30 AM DATAPOWER DEVELOPER [address] [place] [address] Examination: CT of the left foot. Exam [...] Procedure Note Serg Salinas MD - 01/30/[address] [place] [address] Examination: CT of the left foot. Exam [...] lt * LACTIC ACID (01/03/2025 11:42 AM DATAPOWER DEVELOPER) LACTIC ACID VENOUS 1.6 0.4 - 2.0 MMOL/L 01/03/2025 12:10 PM DATAPOWER DEVELOPER [facility] BLOOD VENOUS BLOOD SPECIMEN / Unknown 01/03/2025 11:42 AM DATAPOWER DEVELOPER Delores Linda MD LABORATORY Final Result [facility] [place] [address], * (ABNORMAL) COMPREHENSIVE METABOLIC PANEL (01/03/2025 11:42 AM DATAPOWER DEVELOPER) SODIUM S/P/B 141 136 - 145 MMOL/L 01/03/2025 12:06 PM DATAPOWER DEVELOPER [facility] POTASSIUM S/P/B 4.7 3.5 - 5.1 MMOL/L 01/03/2025 12:06 PM DATAPOWER DEVELOPER [facility] CHLORIDE S/P/B 104 98 - 107 MMOL/L 01/03/2025 12:06 PM DATAPOWER DEVELOPER [facility] CO2 28.7 21.0 - 32.0 MMOL/L 01/03/2025 12:06 PM DATAPOWER DEVELOPER [facility] GLUCOSE 99 70 - 99 MG/DL 01/03/2025 12:06 PM [facility] Comment: FASTING GLUCOSE 100 TO 125 MG/DL IS CONSISTENT WITH IMPAIRED FASTING GLUCOSE. FASTING GLUCOSE >125 MG/DL IS CONSISTENT WITH DIABETES. RANDOM GLUCOSE >200 MG/DL WITH HYPERGLYCEMIC SYMPTOMS IS CONSISTENT WITH DIABETES. PER ADA GUIDELINES BUN 17 6 - 24 MG/DL 01/03/2025 12:06 PM [facility] CREATININE S/P/B 0.85 0.55 - 1.02 MG/DL 01/03/2025 12:06 PM [facility] CALCIUM S/P/B 9.3 8.4 - 10.5 MG/DL 01/03/2025 12:06 PM [facility] BILIRUBIN TOTAL S/P/B 0.3 0.2 - 1.0 MG/DL 01/03/2025 12:06 PM [facility] Comment: THIS ASSAY IS NOT RECOMMENDED FOR PATIENTS UNDERGOING TREATMENT WITH ELTROMBOPAG DUE TO THE POTENTIAL FOR FALSELY ELEVATED RESULTS. ALKALINE PHOSPHATASE S/P/B 66 50 - 130 U/L 01/03/2025 12:06 PM [facility] AST 16 15 - 37 U/L 01/03/2025 12:06 PM [facility] ALT 21 14 - 59 U/L 01/03/2025 12:06 PM [facility] TOTAL PROTEIN S/P/B 7.0 6.4 - 8.2 G/DL 01/03/2025 12:06 PM [facility] ALBUMIN S/P/B 3.8 3.4 - 5.0 G/DL 01/03/2025 12:06 PM [facility] ANION GAP 8.3 5.0 - 15.0 MMOL/L 01/03/2025 12:06 PM [facility] OSMOLALITY (CALC) 294 MOSM/KG 025 12:06 PM [facility] Comment:REFERENCE RANGE NOT ESTABLISHED GFR ESTIMATE 76(L) >89 ML/MIN/1. 73 M2 01/03/2025 12:06 PM [facility] GFR NOTES GFR REFERENCE S: 01/03/2025 12:06 PM [facility] Comment: THE ESTIMATED GFR IS [...] BLOOD SPECIMEN / Unknown 01/03/2025 11:42 AM DATAPOWER DEVELOPER us Delores Linda MD LABORATORY Final Result [facility] [address] [place] [address], * (ABNORMAL) CBC W/DIFF (01/03/2025 11:42 AM DATAPOWER DEVELOPER) WBC 9.21 4.00 - 10.80 x10'3/uL 01/03/2025 11:53 AM DATAPOWER DEVELOPER [facility] RBC 4.16 4.10 - 5.40 x10'6/uL 01/03/2025 11:53 AM [facility] HGB 13.3 12.0 - 16.0 G/DL 01/03/2025 11:53 AM DATAPOWER DEVELOPER [facility] HCT 38.4 36.0 - 47.0 % 01/03/2025 11:53 AM DATAPOWER DEVELOPER [facility] MCV 92.3 78.0 - 100.0 FL 01/03/2025 11:53 AM DATAPOWER DEVELOPER [facility] MCH 32.0(H) 27.0 - 31.0 PG 01/03/2025 11:53 AM [facility] MCHC 34.6 33.0 - 36.0 G/DL 01/03/2025 11:53 AM [facility] RDW 11.6 11.5 - 14.5 % 01/03/2025 11:53 AM [facility] PLT 236 150 - 350 x10'3/uL 01/03/2025 11:53 AM [facility] MPV 9.6 7.4 - 10.4 FL 01/03/2025 11:53 AM [facility] CBC COMMENT NORMAL REFERENCE RANGE NOT ESTABLISHED FOR THE PROPORTIONAL LEUKOCYTE DIFFERENTIAL. 01/03/2025 11:53 AM [facility] NEUTROPHILS % 66.9 % 01/03/2025 11:53 AM [facility] LYMPHOCYTES % 21.2 % 01/03/2025 11:53 AM DATAPOWER DEVELOPER [facility] MONOCYTES % 8.9 % 01/03/2025 11:53 AM DATAPOWER DEVELOPER [facility] EOSINOPHILS % 2.0 % 01/03/2025 11:53 AM [facility] BASOPHILS % 0.7 % 01/03/2025 11:53 AM [facility] IMMATURE GRANS % 0.3 % 01/04/20 11:53 AM [facility] NRBC % 0.0 % 01/03/2025 11:53 AM [facility] ABS. NEUTROPHILS 6.17 1.60 - 8.30 x10'3/uL 01/03/2025 11:53 AM [facility] ABS. LYMPHOCYTES 1.95 0.80 - 4.70 x10'3/uL 01/03/2025 11:53 AM [facility] ABS. MONOCYTES 0.82 0.00 - 1.50 x10'3/uL 01/03/2025 11:53 AM [facility] ABS. EOSINOPHILS 0.18 0.00 - 0.40 x10'3/uL 01/03/2025 11:53 AM [facility] ABS. BASOPHILS 0.06 0.00 - 0.20 x10'3/uL 01/03/2025 11:53 AM [facility] ABS. IMMATURE GRANULOCYTES 0.03 0.00 - 0.03 x10'3/uL 01/03/2025 11:53 AM [facility] ABS. NUCLEATED RBC'S 0.00 0.00 - 0.01 x10'3/uL 01/03/2025 11:53 AM [facility] BLOOD VENOUS BLOOD SPECIMEN / Unknown 01/03/2025 11:42 AM DATAPOWER DEVELOPER us Delores Linda MD LABORATORY Final Result [facility] [address] [place] [id number], * MRI FOOT LT WO CON (11/11/2024 8:36 AM CDT) Anatomical Region Laterality Modality Foot Magnetic Resonan ce 11/22/2024 7:57 AM CDT Impressions 11/22/2024 8:00 AM CDT IMPRESSION: 1. No acute or suspicious findings. 2. 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 Small first MTP joint effusion. 3. No evidence of tendon injury or tenosynovitis. 4. Distal phalanges are excluded from the rjjqf-bh-xona, limiting the exam. Referred By: YEIMI GUTHRIE Interpreted By: Vance Silveira MD, 11/22/2024 7:57 AM Narrative 11/22/2024 8:00 AM CDT [address] [place] [address] EXAMINATION: MRI LEFT FOOT WITHOUT CONTRAST EXAM [...] fracture. Distal phalanges are excluded from the [id number]-jw-qgvf, limiting the exam. 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 Midfoot articulations are essentially well aligned, no significant subchondral cyst formation or hypertrophic bone. No marrow signal abnormality. No evidence of abnormal fluid collection or mass. No significant intermetatarsal bursitis. Procedure Note Vance Silveira MD - 11/22/[address] [place] [address] EXAMINATION: MRI LEFT FOOT WITHOUT CONTRAST EXAM [...] or fracture. Distal phalanges are excluded fromthe dohlf-fj-auyn, limiting the exam. Early first MTP osteoarthritis [...] 4. Distal phalanges are excluded from the hufug-sx-[id number], limiting theexam. Referred By: YEIMI GUTHRIE Interpreted By: Vance Silveira MD, 11/22/2024 7:57 AM Yeimi Guthrie DPM MRI Final Resu lt from Last 3 Months Insurance [employer] Care Teams Rental Coordinator Relationship Specialty Start Date End Date Delores Linda MD [address] [place] [address] PCP - General INTERNAL MEDICINE 09/26/20
--- OUTSIDE RECORDS SUMMARY | 2025-02-07 08:19 | XMS_ITS | Encounter Summary ---
Author Organization [facility] Address [address] [place] [address] Care Team Providers Care Private Duty Nurse Name Role Phone Delores Linda MD Primary Care Provider [phone] Encounter Details Date Type Department Care Team (Latest Contact Info) Description 12/15/2017 Abstract [facility] Medical Group Nic Babcock MD [...] on filedocumented in this encounter Care Teams Private Duty Nurse Relationship Specialty Start Date End Date Delores Linda MD [address] [place] [phone] PCP - General INTERNAL MEDICINE 09/26/20 documented as of this encounter
--- OUTSIDE RECORDS SUMMARY | 2025-02-07 08:19 | XMS_ITS | Clinical Summary ---
Author Organization [facility] Care Team Providers Care Asp Net Developer Name Role Phone Unavailable Primary Care Provider Unavailabl e Social History Tobacco Use Types Packs/Day Years Used Date Smoking Tobacco: Never Assessed Comments Unknown Sex and Gender Information Value Date Recorded Sex Assigned at Not on file Legal Sex Female 1:40 PM VISUAL MERCHANDISING ASSOCIATE Gender Identity Not on file Sexual Orientation [...]
[2025-02-07 10:33] LABS: Toxigenic C. Diff NEGATIVE (NEGATIVE)
== END 2025-02-07 08:13 | disposition home or self-care (01) ==
PROVIDERS: PCP Internal Medicine; Visit Provider Internal Medicine
DX: R19.7 Diarrhea, unspecified (principal); R05.9 Cough, unspecified
CPT/HCPCS: 87045; 87046; 87177; 87425; 87427; 87493; 87798